=== PATIENT | female | born 1990 | race Caucasian/White ===

== ENCOUNTER 2016-11-12 17:10 | Inpatient (IN) | payer BC ==
[2016-11-12] MEDS ORDERED: KETOROLAC 30 MG/ML 1 ML VIAL IVP STA (17:29)
[2016-11-12] MEDS ORDERED: SODIUM CHLORIDE 0.9% 500 ML IV STA (17:29)
[2016-11-12] MEDS ORDERED: SODIUM CHLORIDE 0.9% 1,000 ML IV STA ×2 (17:29→19:43)
[2016-11-12] MEDS ORDERED: ACETAMINOPHEN IV (For NPO) 1,000 MG in EMPTY BAG 1 BAG IVPB STA (17:29)
[2016-11-12] MEDS ORDERED: LEVOFLOXACIN 750MG-D5W PMX 750 MG in DEXTROSE/WATER 1 150ML.BAG IVPB STA (17:30)
[2016-11-12] MEDS ORDERED: AMPICILLIN-SULBACTAM 3 GM in SODIUM CHLORIDE 0.9% 100 ML IVPB STA (17:30)
--- NOTE | 2016-11-12 17:54 | ED ---
General Adult HPI - General Chief complaint: Urogenital Stated complaint: UTI Time Seen by Provider: 11/12/16 17:28 Source: patient, RN notes reviewed, old records reviewed Mode of arrival: wheelchair Limitations: no limitations - History of Present Illness Initial comments: This is a 26-year-old female here for evaluation of flank pain and right-sided flank pain or fever. Patient has no history of kidney stones no significant medical history of similar issues. Decrease in urination. No abdominal pain, positive nausea vomiting starting last night. No diarrhea. No sick contacts or travel history. No modifying factors for symptoms of - Related Data Home Medications Medication Instructions Recorded Confirmed Aviane 1 tab PO DAILY 11/12/16 11/12/16 Cetirizine HCl [Zyrtec] 10 mg PO DAILY 11/12/16 11/12/16 Clindamycin Phos/Benzoyl Perox 1 applic TOPICAL BID 11/12/16 11/12/16 [Benzaclin Gel] Naproxen Sodium [Naproxen Sodium 550 mg PO DAILY PRN 11/12/16 11/12/16 DS] Previous Rx's Medication Instructions Recorded Levofloxacin [Levaquin] 750 mg PO DAILY #14 tab 11/12/16 Naproxen [Naprosyn] 500 mg PO Q12HR #30 tab 11/12/16 Ondansetron [Zofran] 4 mg PO Q8HR PRN #30 tab 11/12/16 Allergies Allergy/AdvReac Type Severity Reaction Status Date / Time cefaclor [From Ceclor] Allergy Rash/Hives Verified 11/12/16 17:38 Review of Systems ROS Statement: Those systems with pertinent positive or pertinent negative responses have been documented in the HPI. ROS Other: All systems not noted in ROS Statement are negative. Past Medical History Past Medical History: GERD/Reflux History of Any Multi-Drug Resistant Organisms: None Reported Past Surgical History: No Surgical Hx Reported Past Psychological History: No Psychological Hx Reported Smoking Status: Current every day smoker Past Alcohol Use History: Occasional Past Drug Use History: Marijuana General Exam Limitations: no limitations General appearance: alert, in no apparent distress Head exam: Present: atraumatic, normocephalic, normal inspection Eye exam: Present: normal appearance, PERRL, EOMI. Absent: scleral icterus, conjunctival injection, periorbital swelling ENT exam: Present: normal exam, mucous membranes moist Neck exam: Present: normal inspection. Absent: tenderness, meningismus, lymphadenopathy Respiratory exam: Present: normal lung sounds bilaterally. Absent: respiratory distress, wheezes, rales, rhonchi, stridor Cardiovascular Exam: Present: normal rhythm, tachycardia, normal heart sounds. Absent: systolic murmur, diastolic murmur, rubs, gallop, clicks GI/Abdominal exam: Present: soft, normal bowel sounds. Absent: distended, tenderness, guarding, rebound, rigid Extremities exam: Present: normal inspection, full ROM, normal capillary refill. Absent: tenderness, pedal edema, joint swelling, calf tenderness Back exam: Present: normal inspection Neurological exam: Present: alert, oriented X3, CN II-XII intact Psychiatric exam: Present: normal affect, normal mood Skin exam: Present: warm, dry, intact, normal color. Absent: rash Course Vital Signs 11/12/16 11/12/16 11/12/16 17:21 18:38 19:25 Temperature 101.5 F H 100.0 F H 99.3 F Pulse Rate 117 H 99 107 H Respiratory 20 16 16 Rate Blood Pressure 115/67 112/58 103/57 O2 Sat by Pulse 98 99 100 Oximetry - Reevaluation(s) Reevaluation #1: 11/12/16 19:41 At this time patient's fever has improved. Patient has ALLERGY to Keflex and given Levaquin here in the emergency room, will obtain cultures of urine Reevaluation #2: 11/12/16 19:41 At this time patient able to tolerate oral intake, fever has improved, is in no acute distress Medical Decision Making - Medical Decision Making 26 female to the ER for evaluation of right-sided flank pain, right-sided possible pyelonephritis, patient is not not diabetic has 2 kidneys has not cancer chemotherapeutic agents, patient stable for discharge home, given 2 L of fluids encouraged increased fluid intake and will be put on antibiotics for 2 weeks. Patient will return to ER if symptoms worsen - Lab Data Result diagrams: 11/12/16 18:00 11/12/16 18:00 Lab Results 11/12/16 11/12/16 11/12/16 Range/Units 18:00 18:00 18:18 WBC 16.1 H (3.8-10.6) k/uL RBC 4.35 (3.80-5.40) m/uL Hgb 13.3 (11.4-16.0) gm/dL Hct 39.7 (34.0-46.0) % MCV 91.4 (80.0-100.0) fL MCH 30.6 (25.0-35.0) pg MCHC 33.5 (31.0-37.0) g/dL RDW 13.2 (11.5-15.5) % Plt Count 241 (150-450) k/uL Neutrophils % 86 % Lymphocytes % 7 % Monocytes % 5 % Eosinophils % 1 % Basophils % 0 % Neutrophils # 13.8 H (1.3-7.7) k/uL Lymphocytes # 1.2 (1.0-4.8) k/uL Monocytes # 0.8 (0-1.0) k/uL Eosinophils # 0.1 (0-0.7) k/uL Basophils # 0.1 (0-0.2) k/uL Sodium 137 (137-145) mmol/L Potassium 4.1 (3.5-5.1) mmol/L Chloride 104 (98-107) mmol/L Carbon Dioxide 23 (22-30) mmol/L Anion Gap 10 mmol/L BUN 13 (7-17) mg/dL Creatinine 0.94 (0.52-1.04) mg/dL Est GFR (MDRD) Af Amer >60 (>60 ml/min/1.73 sqM) Est GFR (MDRD) Non-Af >60 (>60 ml/min/1.73 sqM) Glucose 92 (74-99) mg/dL Calcium 9.1 (8.4-10.2) mg/dL Total Bilirubin 1.0 (0.2-1.3) mg/dL AST 28 (14-36) U/L ALT 29 (9-52) U/L Alkaline Phosphatase 61 (38-126) U/L Total Protein 6.4 (6.3-8.2) g/dL Albumin 3.7 (3.5-5.0) g/dL Amylase 61 (30-110) U/L Lipase 62 (23-300) U/L Urine Color Urine Appearance (Clear) Urine pH (5.0-8.0) Ur Specific [place] (1.001-1.035) Urine Protein (Negative) Urine Glucose (UA) (Negative) Urine Ketones (Negative) Urine Blood (Negative) Urine Nitrite (Negative) Urine Bilirubin (Negative) Urine Urobilinogen (<2.0) mg/dL Ur Leukocyte Esterase (Negative) Urine RBC (0-5) /hpf Urine WBC (0-5) /hpf Ur Squamous Epith Cells (0-4) /hpf Urine Mucus (None) /hpf Urine HCG, Qual Not Detected (Not Detectd) 11/12/16 Range/Units 18:18 WBC (3.8-10.6) k/uL RBC (3.80-5.40) m/uL Hgb (11.4-16.0) gm/dL Hct (34.0-46.0) % MCV (80.0-100.0) fL MCH (25.0-35.0) pg MCHC (31.0-37.0) g/dL RDW (11.5-15.5) % Plt Count (150-450) k/uL Neutrophils % % Lymphocytes % % Monocytes % % Eosinophils % % Basophils % % Neutrophils # (1.3-7.7) k/uL Lymphocytes # (1.0-4.8) k/uL Monocytes # (0-1.0) k/uL Eosinophils # (0-0.7) k/uL Basophils # (0-0.2) k/uL Sodium (137-145) mmol/L Potassium (3.5-5.1) mmol/L Chloride (98-107) mmol/L Carbon Dioxide (22-30) mmol/L Anion Gap mmol/L BUN (7-17) mg/dL Creatinine (0.52-1.04) mg/dL Est GFR (MDRD) Af Amer (>60 ml/min/1.73 sqM) Est GFR (MDRD) Non-Af (>60 ml/min/1.73 sqM) Glucose (74-99) mg/dL Calcium (8.4-10.2) mg/dL Total Bilirubin (0.2-1.3) mg/dL AST (14-36) U/L ALT (9-52) U/L Alkaline Phosphatase (38-126) U/L Total Protein (6.3-8.2) g/dL Albumin (3.5-5.0) g/dL Amylase (30-110) U/L Lipase (23-300) U/L Urine Color Yellow Urine Appearance Turbid H (Clear) Urine pH 8.5 H (5.0-8.0) Ur Specific [place] 1.013 (1.001-1.035) Urine Protein 2+ H (Negative) Urine Glucose (UA) Negative (Negative) Urine Ketones Negative (Negative) Urine Blood Moderate H (Negative) Urine Nitrite Negative (Negative) Urine Bilirubin Negative (Negative) Urine Urobilinogen <2.0 (<2.0) mg/dL Ur Leukocyte Esterase Large H (Negative) Urine RBC 57 H (0-5) /hpf Urine WBC >182 H (0-5) /hpf Ur Squamous Epith Cells 5 H (0-4) /hpf Urine Mucus Rare H (None) /hpf Urine HCG, Qual (Not Detectd) - Radiology Data Radiology results: report reviewed (Computed tomography scan pelvis is negative for acute disease), image reviewed Disposition Clinical Impression: Urinary tract infection, Acute pyelonephritis Disposition: HOME SELF-CARE Condition: Good Instructions: Urinary Tract Infection in Women (ED) Prescriptions: Levofloxacin [Levaquin] 750 mg PO DAILY #14 tab Naproxen [Naprosyn] 500 mg PO Q12HR #30 tab Ondansetron [Zofran] 4 mg PO Q8HR PRN #30 tab PRN Reason: Pain Referrals: Michaela Freeman III, MD [Primary Care Provider] - 1-2 days
[2016-11-12 18:19] LABS: Basophils # (A) 0.1 k/uL (0-0.2); Basophils % (A) 0 %; CH 30.6; CHCM 33.6; Eosinophils # (A) 0.1 k/uL (0-0.7); Eosinophils % (A) 1 %; HCT 39.7 % (34.0-46.0); HDW 2.21; HGB 13.3 gm/dL (11.4-16.0); Luc # (Auto) 0.19; Luc % (Auto) 1; Lymphocytes # (A) 1.2 k/uL (1.0-4.8); Lymphocytes % (A) 7 %; MCH 30.6 pg (25.0-35.0); MCHC 33.5 g/dL (31.0-37.0); MCV 91.4 fL (80.0-100.0); Mean Platelet Volume 7.2; Monocytes # (A) 0.8 k/uL (0-1.0); Monocytes % (A) 5 %; Neutrophils # (A) 13.8 k/uL (1.3-7.7); Neutrophils % (A) 86 %; RBC 4.35 m/uL (3.80-5.40); RDW 13.2 % (11.5-15.5); WBC 16.1 k/uL (3.8-10.6)
[2016-11-12 18:24] LABS: ALT 29 U/L (9-52); AST 28 U/L (14-36); Alkaline Phosphatase 61 U/L (38-126); Amylase 61 U/L (30-110); Anion Gap 10 mmol/L; Blood Urea Nitrogen 13 mg/dL (7-17); Calcium 9.1 mg/dL (8.4-10.2); Carbon Dioxide 23 mmol/L (22-30); Chloride 104 mmol/L (98-107); Glucose 92 mg/dL (74-99); Non-African American GFR(MDRD) >60 (>60 ml/min/1.73 sqM); Potassium 4.1 mmol/L (3.5-5.1); Sodium 137 mmol/L (137-145); Total Protein 6.4 g/dL (6.3-8.2)
[2016-11-12 18:30] LABS: Appearance,Urine Turbid (Clear); Bilirubin,Urine Negative (Negative); Glucose,Urine (UA) Negative (Negative); Ketones,Urine Negative (Negative); Leukocyte Esterase,Urine Large (Negative); Mucus,Urine Rare /hpf; Nitrite,Urine Negative (Negative); PH, Urine 8.5 (5.0-8.0); Particle Count 9944; Protein,Urine 2+ (Negative); RBC,Urine 57 /hpf (0-5); Specific Gravity,Urine 1.013 (1.001-1.035); Squamous Epithelial Cell,Urine 5 /hpf (0-4); UA Billing (MACRO vs. MICRO) MICRO; Urobilinogen,Urine <2.0 mg/dL (<2.0); WBC,Urine >182 /hpf (0-5)
[2016-11-12] MEDS ORDERED: MORPHINE SULFATE 4 MG/ML SYRINGE IVP STA ×2 (18:35→19:59)
[2016-11-12] MEDS ORDERED: LORazepam 2 MG/ML SYRINGE IV STA (18:35)
[2016-11-12] MEDS ORDERED: ONDANSETRON 4 MG/2 ML VIAL IVP STA (18:48)
[2016-11-12] MEDS: SODIUM CHLORIDE 0.9% 1,000 ML IV STA (19:15)
--- NOTE | 2016-11-12 19:22 | CT ---
EXAMINATION TYPE: CT abdomen pelvis wo con DATE OF EXAM: 11/12/2016 7:12 PM COMPARISON: NONE HISTORY: Right sided flank pain CT DLP: 765 mGycm Automated exposure control for dose reduction was used. TECHNIQUE: Helical acquisition of images was performed from the lung bases through the pelvis. FINDINGS: Lung bases are clear of consolidation. There is no pleural effusion. There is minimal pleural thicken ing at the posterior lung bases. Heart is normal. Liver spleen pancreas gallbladder appear normal. Bile ducts are not dilated. There is no adrenal mass. The right kidney shows mild perinephric stranding. The right ureter is mild ly ectatic. I do not see a definite ureteral calculus. Bladder distends smoothly. There is no sign of a pelvic mass. There is a small amount of free fluid in the pelvis. Appendix is not definitely seen. There is no sign of appendicitis. IMPRESSION: THERE IS PERINEPHRIC AND PERIURETERAL EDEMA ON THE RIGHT SIDE WITHOUT SIGNIFICANT ENLARGEMENT OF THE RIGHT URETER. THIS COULD RELATE TO A NONOPAQUE STONE OR RECENTLY PASSED STONE. NO SIGN OF APPENDICITI S. SINCE THE RIGHT URETER IS NOT SIGNIFICANTLY ENLARGED THE POSSIBILITY OF ACUTE PYELONEPHRITIS SHOUL D ALSO BE CONSIDERED.
[2016-11-12] MEDS ORDERED: MORPHINE SULFATE 4 MG/ML SYRINGE IVP PRN (19:46)
--- NOTE | 2016-11-12 19:48 | ED ---
Medical Decision Making - Medical Decision Making 22 for female with pyelonephritis, on reevaluation, patient is actively vomiting , states she is having increased pain and return to right flank. Again CT is negative for kidney stone the patient will be admitted for IV antibiotics IV fluid and rehydration. - Lab Data Result diagrams: 11/12/16 18:00 11/12/16 18:00 Lab Results 11/12/16 11/12/16 11/12/16 Range/Units 18:00 18:00 18:18 WBC 16.1 H (3.8-10.6) k/uL RBC 4.35 (3.80-5.40) m/uL Hgb 13.3 (11.4-16.0) gm/dL Hct 39.7 (34.0-46.0) % MCV 91.4 (80.0-100.0) fL MCH 30.6 (25.0-35.0) pg MCHC 33.5 (31.0-37.0) g/dL RDW 13.2 (11.5-15.5) % Plt Count 241 (150-450) k/uL Neutrophils % 86 % Lymphocytes % 7 % Monocytes % 5 % Eosinophils % 1 % Basophils % 0 % Neutrophils # 13.8 H (1.3-7.7) k/uL Lymphocytes # 1.2 (1.0-4.8) k/uL Monocytes # 0.8 (0-1.0) k/uL Eosinophils # 0.1 (0-0.7) k/uL Basophils # 0.1 (0-0.2) k/uL Sodium 137 (137-145) mmol/L Potassium 4.1 (3.5-5.1) mmol/L Chloride 104 (98-107) mmol/L Carbon Dioxide 23 (22-30) mmol/L Anion Gap 10 mmol/L BUN 13 (7-17) mg/dL Creatinine 0.94 (0.52-1.04) mg/dL Est GFR (MDRD) Af Amer >60 (>60 ml/min/1.73 sqM) Est GFR (MDRD) Non-Af >60 (>60 ml/min/1.73 sqM) Glucose 92 (74-99) mg/dL Calcium 9.1 (8.4-10.2) mg/dL Total Bilirubin 1.0 (0.2-1.3) mg/dL AST 28 (14-36) U/L ALT 29 (9-52) U/L Alkaline Phosphatase 61 (38-126) U/L Total Protein 6.4 (6.3-8.2) g/dL Albumin 3.7 (3.5-5.0) g/dL Amylase 61 (30-110) U/L Lipase 62 (23-300) U/L Urine Color Urine Appearance (Clear) Urine pH (5.0-8.0) Ur Specific [place] (1.001-1.035) Urine Protein (Negative) Urine Glucose (UA) (Negative) Urine Ketones (Negative) Urine Blood (Negative) Urine Nitrite (Negative) Urine Bilirubin (Negative) Urine Urobilinogen (<2.0) mg/dL Ur Leukocyte Esterase (Negative) Urine RBC (0-5) /hpf Urine WBC (0-5) /hpf Ur Squamous Epith Cells (0-4) /hpf Urine Mucus (None) /hpf Urine HCG, Qual Not Detected (Not Detectd) 11/12/16 Range/Units 18:18 WBC (3.8-10.6) k/uL RBC (3.80-5.40) m/uL Hgb (11.4-16.0) gm/dL Hct (34.0-46.0) % MCV (80.0-100.0) fL MCH (25.0-35.0) pg MCHC (31.0-37.0) g/dL RDW (11.5-15.5) % Plt Count (150-450) k/uL Neutrophils % % Lymphocytes % % Monocytes % % Eosinophils % % Basophils % % Neutrophils # (1.3-7.7) k/uL Lymphocytes # (1.0-4.8) k/uL Monocytes # (0-1.0) k/uL Eosinophils # (0-0.7) k/uL Basophils # (0-0.2) k/uL Sodium (137-145) mmol/L Potassium (3.5-5.1) mmol/L Chloride (98-107) mmol/L Carbon Dioxide (22-30) mmol/L Anion Gap mmol/L BUN (7-17) mg/dL Creatinine (0.52-1.04) mg/dL Est GFR (MDRD) Af Amer (>60 ml/min/1.73 sqM) Est GFR (MDRD) Non-Af (>60 ml/min/1.73 sqM) Glucose (74-99) mg/dL Calcium (8.4-10.2) mg/dL Total Bilirubin (0.2-1.3) mg/dL AST (14-36) U/L ALT (9-52) U/L Alkaline Phosphatase (38-126) U/L Total Protein (6.3-8.2) g/dL Albumin (3.5-5.0) g/dL Amylase (30-110) U/L Lipase (23-300) U/L Urine Color Yellow Urine Appearance Turbid H (Clear) Urine pH 8.5 H (5.0-8.0) Ur Specific [place] 1.013 (1.001-1.035) Urine Protein 2+ H (Negative) Urine Glucose (UA) Negative (Negative) Urine Ketones Negative (Negative) Urine Blood Moderate H (Negative) Urine Nitrite Negative (Negative) Urine Bilirubin Negative (Negative) Urine Urobilinogen <2.0 (<2.0) mg/dL Ur Leukocyte Esterase Large H (Negative) Urine RBC 57 H (0-5) /hpf Urine WBC >182 H (0-5) /hpf Ur Squamous Epith Cells 5 H (0-4) /hpf Urine Mucus Rare H (None) /hpf Urine HCG, Qual (Not Detectd) Disposition Clinical Impression: Urinary tract infection, Acute pyelonephritis Disposition: ADMITTED IP TO THIS HOSP Condition: Good Instructions: Urinary Tract Infection in Women (ED) Prescriptions: Levofloxacin [Levaquin] 750 mg PO DAILY #14 tab Naproxen [Naprosyn] 500 mg PO Q12HR #30 tab Ondansetron [Zofran] 4 mg PO Q8HR PRN #30 tab PRN Reason: Pain Referrals: Michaela Freeman III, MD [Primary Care Provider] - 1-2 days
[2016-11-12] MEDS ORDERED: HYDROmorphone 1 MG/ML 1 ML SYRINGE IVP PRN (21:24)
[2016-11-12] MEDS: METOCLOPRAMIDE 5 MG/ML 2 ML VIAL IVP PRN (22:08)
[2016-11-12] MEDS: TEMAZEPAM 15 MG CAP PO PRN (23:04)
[2016-11-12 23:41] VITALS: BMI 26.9
[2016-11-13] MEDS: ALPRAZolam 0.25 MG TAB PO PRN ×2 (00:27→21:58)
[2016-11-13 02:12] LABS: Basophils % (A) 0 %; CH 30.4; CHCM 33.1; Eosinophils % (A) 0 %; HCT 34.7 % (34.0-46.0); HDW 2.24; HGB 11.5 gm/dL (11.4-16.0); Luc # (Auto) 0.11; Luc % (Auto) 1; Lymphocytes # (A) 0.8 k/uL (1.0-4.8); Lymphocytes % (A) 5 %; MCH 30.7 pg (25.0-35.0); MCHC 33.3 g/dL (31.0-37.0); MCV 92.2 fL (80.0-100.0); Mean Platelet Volume 6.6; Monocytes # (A) 0.4 k/uL (0-1.0); Monocytes % (A) 2 %; Neutrophils # (A) 13.7 k/uL (1.3-7.7); Neutrophils % (A) 91 %; RBC 3.76 m/uL (3.80-5.40); RDW 13.3 % (11.5-15.5); WBC 15.1 k/uL (3.8-10.6); WBC (Perox) 16.22
[2016-11-13 02:15] LABS: Anion Gap 7 mmol/L; Blood Urea Nitrogen 10 mg/dL (7-17); Calcium 7.7 mg/dL (8.4-10.2); Carbon Dioxide 20 mmol/L (22-30); Chloride 109 mmol/L (98-107); Glucose 122 mg/dL (74-99); Non-African American GFR(MDRD) >60 (>60 ml/min/1.73 sqM); Potassium 3.2 mmol/L (3.5-5.1); Sodium 136 mmol/L (137-145)
[2016-11-13] MEDS: NICOTINE 14MG/24HR PATCH TRANSDERM SCH ×2 (04:11→09:25)
[2016-11-13] MEDS: SODIUM CHLORIDE 0.9% 1,000 ML IV STA (04:14)
[2016-11-13] MEDS: LORATADINE 10 MG TAB PO SCH (07:29)
[2016-11-13] MEDS: HYDROmorphone 1 MG/ML 1 ML SYRINGE IVP PRN ×3 (07:30→18:27)
[2016-11-13] MEDS: METOCLOPRAMIDE 5 MG/ML 2 ML VIAL IVP PRN ×3 (07:36→20:35)
--- NOTE | 2016-11-13 07:45 | XR ---
EXAMINATION TYPE: XR chest 1V portable DATE OF EXAM: 11/13/2016 7:23 AM CLINICAL HISTORY: CHF per order. Pyelonephritis and fever per technologist. TECHNIQUE: 2 AP portable frontal upright views of the chest are obtained. Imaging is repeated after r emoval of bra. COMPARISON: Chest x-ray from August 10, 2009 FINDINGS: Diminished inspiration is noted on repeat view. There is no suspicious focal airspace opac ity, pleural effusion, or pneumothorax seen bilaterally. The cardiac silhouette size is upper limits of normal. Osseous structures are intact. Overlying metallic nipple ornaments are incidentally noted. IMPRESSION: No suspicious focal infiltrate present.
--- NOTE | 2016-11-13 08:41 | HP ---
DATE OF ADMISSION: The chief complaint is abdominal pain. HISTORY OF PRESENT ILLNESS: This 26-year-old woman with the past history of GERD, history of smoking and occasional THC being followed by Dr. Freeman in the outpatient setting. Came to [facility] emergency room with complaints of basically the flank pain and right-sided flank pain and fever. The patient had no history of kidney stones. Patient complaining of some decrease in urination. The patient had previous UTIs. The patient was found to have significant UTI and possibly increased WBC, possibly pyelonephritis was considered. Patient admitted for further evaluation and treatment. A CAT scan of the abdomen and pelvis was done at the time of admission, showed perinephric and periureteral edema on the right side without any significant enlargement of the right ureter which could be related to nonopaque stone or recently passed stone according to the report. No of appendicitis. The right ureter is not significantly enlarged. The possibility of pyelonephritis is per the CAT scan report. There is no history of any headache, loss of consciousness or any hematochezia, melena. PAST MEDICAL HISTORY: History of GERD, history of nicotine dependence, history of THC. Medications are: 1. Naprosyn 550 mg daily p.r.n. 2. Clindamycin 1 application b.i.d. 3. Zyrtec 10 mg daily. 4. Aviane 1 tablet p.o. daily. 5. Zofran 4 mg q.8 p.r.n. 6. Naprosyn 500 mg p.o. b.i.d. 7. Levaquin 750 p.o. daily. Allergies are CEFACLOR. FAMILY HISTORY: No history of heart disease or strokes in the family. 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 History of smoking. REVIEW OF SYSTEMS: ENT: No diminished hearing or diminished vision. CARDIOVASCULAR: No angina or palpitation. RESPIRATORY: No cough. GI: As mentioned earlier. : As mentioned earlier. NERVOUS SYSTEM: No numbness or weakness. ALLERGY/IMMUNOLOGY: No asthma. MUSCULOSKELETAL: As mentioned earlier. HEMATOLOGY: No history of anemia. ENDOCRINE: No history of diabetes or hypothyroidism. CONSTITUTIONAL: As mentioned earlier. DERMATOLOGY: Negative. RHEUMATOLOGY: Negative. PSYCHIATRY: As mentioned earlier. PHYSICAL EXAM: Patient is alert and oriented x3. Pulse is 117, blood pressure 115/67, respirations 20, temperature 101.5, pulse ox 98% on room air. HEENT: Conjunctivae normal. Oral mucosa moist. NECK: No jugular venous distention. No carotid bruit. LYMPHATICS: No lymph node enlargement the neck, axillae or groin. SKIN: No ulcer, rash, bleeding. ABDOMEN: Soft, mild diffuse tenderness especially on the right side and also right renal angle also. There is no guarding. No mass palpable. Bowel sounds present, no ascites. NERVOUS SYSTEM: Higher functions as mentioned, moves all 4 limbs. No focal motor or sensory deficits. SKIN: No ulcer, rash, bleeding. JOINTS: No active deformity. LABS: WBC 16.1, hemoglobin is 13.3. UA noted. ASSESSMENT: 1. Acute right pyelonephritis with possibly sepsis, present on admission. 2. Severe abdominal pain. 3. Hiccups. 4. Gastroesophageal reflux disease. 5. History of nicotine dependence. 6. History of THC. RECOMMENDATION: In this 26-year-old woman who presented with multiple complex medical issues, will monitor the patient closely. Continue with the IV antibiotics, will obtain cultures, symptomatic treatment. We will provide IV fluids. Otherwise, continue to monitor, consult Dr. Barger. There is no clearcut evidence of nephrolithiasis at this time. I would also recommend to resume the home medications as well. Guarded prognosis. Further recommendations to follow. MTDD
[2016-11-13] MEDS ORDERED: PANTOPRAZOLE 40 MG/10 ML VIAL IVP SCH ×2 (09:00)
[2016-11-13] MEDS: HYDROcodone/APAP 5-325MG 1 EACH TAB PO PRN ×2 (10:05→16:24)
[2016-11-13] MEDS: PANTOPRAZOLE 40 MG TABLET PO SCH (18:31)
[2016-11-13] MEDS ORDERED: LEVOFLOXACIN 750MG-D5W PMX 750 MG in DEXTROSE/WATER 1 150ML.BAG IVPB SCH (19:00)
--- NOTE | 2016-11-13 21:33 | P.CONS ---
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 Was associated with fever and chill. Also associated with nausea and emesis. The discomforts have increased greatly over the 48 hours before she came to hospital. The patient did not notice crystal hematuria urine was dark and cloudy and malodorous. She was having some dysuria. She however has not noticed any significant migratory pain from the left flank into the pelvic area. She has no history of nephrolithiasis. Has not felt that she has passed any foreign bodies in the last few days for her urinary system. He has noted she's had nausea and emesis without hematemesis. She's had mildly loose stool but no crystal melena or hematochezia. He feels poor this evening with ongoing nausea and emesis. Review of Systems HEENT:Denies headache or acute visual change. Denies sinus or mouth discomforts. Denies neck stiffness or pain. Denies significant oral cavity pain. Denies difficulty on swallowing. Lungs: Denies significant shortness of breath, cough, sputum production, or hemoptysis. Cardiovascular: Denies significant shortness of breath, chest pain, chest wall pain, orthopnea, dyspnea on exertion, syncope Gastrointestinal: As per the HPI positive nausea and emesis Musculoskeletal: denies significant myalgias or arthralgias. No new joint swelling. Denies new back pain. Skin: Denies new rash or lesions. No new ulcers or wounds are related.. Neuro: Denies headache or visual change. Denies any new onset weakness or difficulty with ambulation. Denies falls or seizures. Psychiatric:Denies anxiety or depression. Endocrine: Denies significant fatigue, denies significant weight loss or weight gain. 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 Single but has a live-in boyfriend. No recent travel. No animal exposures. No experience. Limited THC use no significant alcohol or other recreational drug use. Smoking Status: Current some day smoker Past Alcohol Use History: Occasional Past Drug Use History: Marijuana - Past Family History Mother Family Medical History: No Reported History Additional Family Medical History / Comment(s): car accident with back problems Medications and Allergies Home Medications and Allergies Comment(s): Current Medications Hydrocodone Bitart/Acetaminophen ([place] 5-325) 1 each PO Q6HR PRN PRN Reason: Moderate Pain Last Admin: 11/13/16 16:24 Dose: 1 each Alprazolam (Xanax) 0.25 mg PO TID PRN PRN Reason: Anxiety Last Admin: 11/13/16 00:27 Dose: 0.25 mg Docusate Sodium (Colace) 100 mg PO DAILY [facility] Hydromorphone HCl (Dilaudid) 1 mg IVP Q6HR PRN PRN Reason: severe spasm only 10/10 Last Admin: 11/13/16 18:27 Dose: 1 mg Hydromorphone HCl (Dilaudid) 0.25 mg IVP Q4HR PRN PRN Reason: Pain Scale 6 To 8 Last Admin: 11/13/16 14:22 Dose: 0.25 mg Levofloxacin 750 mg/ IV (Solution) 150 mls @ 100 mls/hr IVPB Q24H [facility] Last Admin: 11/13/16 18:31 Dose: 100 mls/hr Ketorolac Tromethamine (Toradol) 30 mg IVP Q6HR [facility] Stop: 11/17/16 22:01 Loratadine (Claritin) 10 mg PO DAILY [facility] Last Admin: 11/13/16 07:29 Dose: 10 mg Metoclopramide HCl (Reglan) 5 mg IVP Q6HR PRN PRN Reason: hiccoughs Last Admin: 11/13/16 20:35 Dose: 5 mg Nicotine (Habitrol 14mg/24hr Patch) 1 patch TRANSDERM DAILY [facility] Last Admin: 11/13/16 09:25 Dose: Not Given Ondansetron HCl (Zofran) 4 mg IVP Q6HR PRN PRN Reason: Nausea And Vomiting Pantoprazole Sodium (Protonix) 40 mg PO AC-BID [facility] Last Admin: 11/13/16 18:31 Dose: 40 mg Temazepam (Restoril) 15 mg PO HS PRN PRN Reason: Insomnia Last Admin: 11/12/16 23:04 Dose: 15 mg Home Medications Medication Instructions Recorded Confirmed Type Aviane 1 tab PO DAILY 11/12/16 11/12/16 History Cetirizine HCl [Zyrtec] 10 mg PO DAILY 11/12/16 11/12/16 History Clindamycin Phos/Benzoyl Perox 1 applic TOPICAL BID 11/12/16 11/12/16 History [Benzaclin Gel] Naproxen Sodium [Naproxen Sodium 550 mg PO DAILY PRN 11/12/16 11/12/16 History DS] Allergies Allergy/AdvReac Type Severity Reaction Status Date / Time mani Allergy Severe Swelling Verified 11/13/16 01:50 cefaclor [From [facility]] Allergy Rash/Hives Verified 11/12/16 23:41 cats Allergy Cough Uncoded 11/13/16 01:50 Physical Exam Vitals: Vital Signs Temp Pulse Resp BP Pulse Ox 11/13/16 21:16 98.3 F 99 17 105/65 100 11/13/16 15:00 97.0 F L 99 20 96/59 100 11/13/16 07:00 98.4 F 20 92/53 97 11/13/16 01:35 99.8 F H 112 H 16 92/52 97 11/13/16 00:10 99.0 F 116 H 20 98/60 99 11/12/16 22:00 100.9 F H 112 H 24 114/68 99 Intake and Output 11/13/16 11/13/16 11/13/16 06:59 14:59 22:59 Output Total 500 900 700 Balance -500 -900 -700 Output: Urine 500 900 700 Other: Voiding Method Toilet Toilet # Voids 1 1 26-year-old woman feeling very miserable, ongoing abdominal pain to the right lower quadrant and right flank assist with active nausea and emesis at this time. HEENT: Anicteric conjunctiva are pink and moist nasal mucosa grossly intact without significant lesions, there is no thrush. Neck: The neck is supple without significant lymphadenopathy or thyromegaly. Lungs: Good bilateral air entry without significant crackles or wheezing. There is no significant bronchial sounds. There is no egophony or dullness. Heart: Regular rate and rhythm with an audible S1-S2, no S3 no S4. There is no significant murmur click or rub, PMI was nondisplaced. Abdomen: Positive bowel sounds are noted. The abdomen is soft. There is tenderness into the right flank that does radiate into the right lower quadrant. There is however no guarding or rebound. There is minimal tenderness over the bladder. There is no bladder distention. There is no bruising over the flank. No hepatosplenomegaly is noted. Extremities: The upper extremities have excellent pulses they are symmetric, no significant petechiae or telangiectasia. No splinter hemorrhages were noted. The lower extremities are free from significant edema. The peripheral pulses were 2+ and symmetric. Neuro: Awake alert oriented to person place and time. There are no acute new gross focal sensory motor deficits. Results CBC & Chem 7: 11/13/16 01:54 11/13/16 01:54 Labs: Abnormal Lab Results - Last 24 Hours (Table) 11/13/16 11/13/16 Range/Units 01:54 01:54 WBC 15.1 H (3.8-10.6) k/uL RBC 3.76 L (3.80-5.40) m/uL Neutrophils # 13.7 H (1.3-7.7) k/uL Lymphocytes # 0.8 L (1.0-4.8) k/uL Sodium 136 L (137-145) mmol/L Potassium 3.2 L (3.5-5.1) mmol/L Chloride 109 H (98-107) mmol/L Carbon Dioxide 20 L (22-30) mmol/L Glucose 122 H (74-99) mg/dL Calcium 7.7 L (8.4-10.2) mg/dL Laboratory Results WBC 15.1 k/uL (3.8-10.6) H 11/13/16 01:54 RBC 3.76 m/uL (3.80-5.40) L 11/13/16 01:54 Hgb 11.5 gm/dL (11.4-16.0) 11/13/16 01:54 Hct 34.7 % (34.0-46.0) 11/13/16 01:54 MCV 92.2 fL (80.0-100.0) 11/13/16 01:54 MCH 30.7 pg (25.0-35.0) 11/13/16 01:54 MCHC 33.3 g/dL (31.0-37.0) 11/13/16 01:54 RDW 13.3 % (11.5-15.5) 11/13/16 01:54 Plt Count 200 k/uL (150-450) 11/13/16 01:54 Neutrophils % 91 % 11/13/16 01:54 Lymphocytes % 5 % 11/13/16 01:54 Monocytes % 2 % 11/13/16 01:54 Eosinophils % 0 % 11/13/16 01:54 Basophils % 0 % 11/13/16 01:54 Neutrophils # 13.7 k/uL (1.3-7.7) H 11/13/16 01:54 Lymphocytes # 0.8 k/uL (1.0-4.8) L 11/13/16 01:54 Monocytes # 0.4 k/uL (0-1.0) 11/13/16 01:54 Eosinophils # 0.0 k/uL (0-0.7) 11/13/16 01:54 Basophils # 0.0 k/uL (0-0.2) 11/13/16 01:54 Sodium 136 mmol/L (137-145) L 11/13/16 01:54 Potassium 3.2 mmol/L (3.5-5.1) L 11/13/16 01:54 Chloride 109 mmol/L (98-107) H 11/13/16 01:54 Carbon Dioxide 20 mmol/L (22-30) L 11/13/16 01:54 Anion Gap 7 mmol/L 11/13/16 01:54 BUN 10 mg/dL (7-17) 11/13/16 01:54 Creatinine 0.80 mg/dL (0.52-1.04) 11/13/16 01:54 Est GFR (MDRD) Af Amer >60 (>60 ml/min/1.73 sqM) 11/13/16 01:54 Est GFR (MDRD) Non-Af >60 (>60 ml/min/1.73 sqM) 11/13/16 01:54 Glucose 122 mg/dL (74-99) H 11/13/16 01:54 Plasma Lactic Acid Konstantin 1.6 mmol/L (0.7-2.0) 11/13/16 09:23 Calcium 7.7 mg/dL (8.4-10.2) L 11/13/16 01:54 Total Bilirubin 1.0 mg/dL (0.2-1.3) 11/12/16 18:00 AST 28 U/L (14-36) 11/12/16 18:00 ALT 29 U/L (9-52) 11/12/16 18:00 Alkaline Phosphatase 61 U/L (38-126) 11/12/16 18:00 Total Protein 6.4 g/dL (6.3-8.2) 11/12/16 18:00 Albumin 3.7 g/dL (3.5-5.0) 11/12/16 18:00 Amylase 61 U/L (30-110) 11/12/16 18:00 Lipase 62 U/L (23-300) 11/12/16 18:00 Urine Color Yellow 11/12/16 18:18 Urine Appearance Turbid (Clear) H 11/12/16 18:18 Urine pH 8.5 (5.0-8.0) H 11/12/16 18:18 Ur Specific [place] 1.013 (1.001-1.035) 11/12/16 18:18 Urine Protein 2+ (Negative) H 11/12/16 18:18 Urine Glucose (UA) Negative (Negative) 11/12/16 18:18 Urine Ketones Negative (Negative) 11/12/16 18:18 Urine Blood Moderate (Negative) H 11/12/16 18:18 Urine Nitrite Negative (Negative) 11/12/16 18:18 Urine Bilirubin Negative (Negative) 11/12/16 18:18 Urine Urobilinogen <2.0 mg/dL (<2.0) 11/12/16 18:18 Ur Leukocyte Esterase Large (Negative) H 11/12/16 18:18 Urine RBC 57 /hpf (0-5) H 11/12/16 18:18 Urine WBC >182 /hpf (0-5) H 11/12/16 18:18 Ur Squamous Epith Cells 5 /hpf (0-4) H 11/12/16 18:18 Urine Mucus Rare /hpf (None) H 11/12/16 18:18 Urine HCG, Qual Not Detected (Not Detectd) 11/12/16 18:18 Microbiology 11/12/16 18:18 Urine,Voided Urine Culture - Preliminary Assessment and Plan (1) Acute pyelonephritis Narrative/Plan: 26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 She had a fever of 101.5 at admission. She continues to have nausea and emesis which is active at this time. Ongoing significant flank pain. Especially at the right pelvic brim. It is noted the computed tomography scan shows evidence of stranding around the right kidney. Consistent with pyelonephritis since no evidence of any obstruction was seen and there was no significant dilatation of the right ureter. A non-radiopaque stone was also in the consideration. Patient does feel slightly better and that her fever is improved. She's not having chills or rigors. Social having active nausea and emesis. Some Zofran is added. Pain control is an issue and Toradol is added. Follow up labs and cultures in progress. Status: Acute (2) Nausea & vomiting Status: Acute (3) Fever Status: Acute (4) Acute right flank pain Status: Acute
[2016-11-13] MEDS: TEMAZEPAM 15 MG CAP PO PRN (21:58)
[2016-11-14] MEDS: SODIUM CHLORIDE 0.9% 1,000 ML IV STA ×2 (01:52→11:41)
[2016-11-14] MEDS: HYDROmorphone 1 MG/ML 1 ML SYRINGE IVP PRN ×2 (05:17→19:53)
[2016-11-14] MEDS: ONDANSETRON 4 MG/2 ML VIAL IVP PRN ×3 (05:21→23:12)
[2016-11-14 07:14] LABS: Basophils % (A) 0 %; CH 30.6; CHCM 32.9; Eosinophils # (A) 0.2 k/uL (0-0.7); Eosinophils % (A) 1 %; HCT 31.8 % (34.0-46.0); HDW 2.45; HGB 10.4 gm/dL (11.4-16.0); Luc # (Auto) 0.47; Luc % (Auto) 4; Lymphocytes # (A) 1.4 k/uL (1.0-4.8); Lymphocytes % (A) 12 %; MCH 30.7 pg (25.0-35.0); MCHC 32.8 g/dL (31.0-37.0); MCV 93.7 fL (80.0-100.0); Mean Platelet Volume 7.2; Monocytes # (A) 0.9 k/uL (0-1.0); Monocytes % (A) 8 %; Neutrophils # (A) 8.4 k/uL (1.3-7.7); Neutrophils % (A) 74 %; RDW 13.3 % (11.5-15.5); WBC 11.4 k/uL (3.8-10.6); WBC (Perox) 12.53
[2016-11-14 07:27] LABS: Anion Gap 7 mmol/L; Blood Urea Nitrogen 5 mg/dL (7-17); Calcium 8.1 mg/dL (8.4-10.2); Carbon Dioxide 22 mmol/L (22-30); Chloride 112 mmol/L (98-107); Glucose 86 mg/dL (74-99); Non-African American GFR(MDRD) >60 (>60 ml/min/1.73 sqM); Potassium 3.9 mmol/L (3.5-5.1); Sodium 141 mmol/L (137-145)
--- NOTE | 2016-11-14 08:56 | PN ---
DATE OF SERVICE: 11/13/2016 This 26 -year-old woman who was admitted with acute right pyelonephritis with possible sepsis is being closely monitored. The patient complaining of abdominal discomfort and as well as pain also. Chest x-ray showed no specific focal infiltrate. CT scan has been . Infectious disease evaluation in progress. No chest pain. No palpitations. No fever. On exam, alert and oriented times three. Pulse 112. Blood pressure 92/52. Respiration 16, temperature 99.8. Pulse ox 97% on room air. HEENT: Conjunctivae normal. NECK: No jugular venous distention. CARDIOVASCULAR: S1, S2. CARDIOVASCULAR: Breath sounds diminished in the bases. No rhonchi, no crackles. ABDOMEN: Soft. Mild diffuse discomfort especially on the right side, right angle tenderness also present. Nervous system: No focal deficits. LABS: WBC 15.1 and sodium 133, potassium 3.2. UA noted. Cultures are pending at this time. ASSESSMENT: 1. Acute right pyelonephritis with possible early sepsis, present on admission. 2. Severe abdominal and renal pain. 3. Hiccups. 4. Gastroesophageal reflux disease. 5. History of nicotine dependence. 6. History of THC. 7. Hypernatremia. 8. Mild hypokalemia. 9. Mild hypocalcemia. 10. Increased random blood sugar. RECOMMENDATIONS AND DISCUSSION: Recommend to continue the current medications. Continue symptomatic treatment. Otherwise, we will monitor the patient closely. Otherwise, repeat labs in the morning. Infectious disease evaluation by Dr. Barger. Guarded prognosis. Further recommendations to follow. [facility]
[2016-11-14] MEDS ORDERED: KETOROLAC 30 MG/ML 1 ML VIAL IVP STA (09:21)
[2016-11-14] MEDS: LORATADINE 10 MG TAB PO SCH (09:56)
[2016-11-14] MEDS: PANTOPRAZOLE 40 MG TABLET PO SCH ×2 (09:56→18:01)
[2016-11-14] MEDS: DOCUSATE 100 MG CAP PO SCH (09:56)
[2016-11-14] MEDS: HYDROcodone/APAP 5-325MG 1 EACH TAB PO PRN ×2 (14:10→17:58)
[2016-11-14] MEDS: NICOTINE 14MG/24HR PATCH TRANSDERM SCH (14:54)
[2016-11-14] MEDS: KETOROLAC 30 MG/ML 1 ML VIAL IVP SCH ×2 (16:02→23:21)
[2016-11-14] MEDS: LEVOFLOXACIN 750 MG TAB PO SCH (18:01)
--- NOTE | 2016-11-14 18:22 | PN ---
DATE OF SERVICE: 11/14/2016 This 26-year-old woman who was admitted with right pyelonephritis and possible sepsis, is being closely monitored. No chest pain or palpitations. No fever. On exam, alert and oriented x3. Pulse 88, blood pressure 85/47, respirations 22, temperature 98.4, pulse ox 97% on room air. HEENT: Conjunctivae normal. NECK: No jugular venous distension. CARDIOVASCULAR: S1 and S2 muffled. RESPIRATORY: Breath sounds diminished in the bases. No rhonchi. No crackles. ABDOMEN: Soft. Mild diffuse tenderness present, right more than left and renal angle tenderness. No guarding. No rigidity. No mass palpable. Bowel sounds present. LEGS: No edema. No swelling. LABS: WBC 11.4, hemoglobin is 10.4. Urine culture is gram-negative bacilli. ASSESSMENT: 1. Acute right pyelonephritis with possibility of early sepsis, present on admission. 2. Gram-negative bacilli from the urine culture. 3. Severe abdominal pain and renal angle pain. 4. Hiccups. 5. Gastroesophageal reflux disease. 6. History of nicotine dependence. 7. History of THC. 8. Hypernatremia. 9. Mild hyperkalemia. 10. Mild hypocalcemia. 11. Increased random blood sugar. RECOMMENDATIONS AND DISCUSSION: Recommend to continue with current medications. Continue with monitoring and symptomatic treatment. Otherwise, at this time I recommend continuing with antibiotics, closely follow with Dr. Barger. Guarded prognosis. Further recommendations to follow.
[2016-11-14] MEDS: METOCLOPRAMIDE 5 MG/ML 2 ML VIAL IVP PRN (19:45)
[2016-11-14] MEDS: SODIUM CHLORIDE 0.9% 1,000 ML IV SCH (21:28)
[2016-11-14] MEDS ORDERED: KETOROLAC 30 MG/ML 1 ML VIAL IVP SCH (22:00)
--- NOTE | 2016-11-14 22:03 | P.PN ---
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 Was associated with fever and chill. Also associated with nausea and emesis. The discomforts have increased greatly over the 48 hours before she came to hospital. The patient did not notice crystal hematuria urine was dark and cloudy and malodorous. She was having some dysuria. She however has not noticed any significant migratory pain from the left flank into the pelvic area. She has no history of nephrolithiasis. Has not felt that she has passed any foreign bodies in the last few days for her urinary system. Feeling somewhat better today. Still having some pain at times. The nausea and emesis of generally resolved. She's had one bout of nausea today but no further emesis occurred. Overall feeling considerably better. Her fevers resolved. Is receiving relatively good pain control with current parameters. However with her family present she had some worsening discomfort and received Dilaudid and h is had an excellent response for pain control. Obvious narcotic effect. Patient does relate the pain has moved more from the flank to bit more anterior lower into the pelvis. Objective - Vital Signs Vital signs: Vital Signs Temp 97.9 F 11/14/16 20:30 Pulse 82 11/14/16 20:30 Resp 20 11/14/16 20:30 BP 110/72 11/14/16 20:30 Pulse Ox 97 11/14/16 20:30 Intake & Output 11/14/16 11/14/16 11/15/16 06:59 18:59 06:59 Intake Total 400 Output Total 1100 1600 Balance -700 -1600 Intake: Oral 400 Output: Urine 1100 1600 Other: Voiding Method Toilet Toilet Toilet - Exam 26-year-old woman feeling very miserable, ongoing abdominal pain to the right lower quadrant and right flank assist with active nausea and emesis at this time. HEENT: Anicteric conjunctiva are pink and moist nasal mucosa grossly intact without significant lesions, there is no thrush. Neck: The neck is supple without significant lymphadenopathy or thyromegaly. Lungs: Good bilateral air entry without significant crackles or wheezing. There is no significant bronchial sounds. There is no egophony or dullness. Heart: Regular rate and rhythm with an audible S1-S2, no S3 no S4. There is no significant murmur click or rub, PMI was nondisplaced. Abdomen: Positive bowel sounds are noted. The abdomen is soft. There is tenderness into the right flank that does radiate into the right lower quadrant. There is however no guarding or rebound. There is minimal tenderness over the bladder. There is no bladder distention. There is no bruising over the flank. No hepatosplenomegaly is noted. Extremities: The upper extremities have excellent pulses they are symmetric, no significant petechiae or telangiectasia. No splinter hemorrhages were noted. The lower extremities are free from significant edema. The peripheral pulses were 2+ and symmetric. Neuro: Awake alert oriented to person place and time. There are no acute new gross focal sensory motor deficits. - Labs CBC & Chem 7: 11/14/16 06:59 11/14/16 06:59 Labs: Abnormal Lab Results - Last 24 Hours (Table) 11/14/16 11/14/16 Range/Units 06:59 06:59 WBC 11.4 H (3.8-10.6) k/uL RBC 3.40 L (3.80-5.40) m/uL Hgb 10.4 L (11.4-16.0) gm/dL Hct 31.8 L (34.0-46.0) % Neutrophils # 8.4 H (1.3-7.7) k/uL Chloride 112 H (98-107) mmol/L BUN 5 L (7-17) mg/dL Calcium 8.1 L (8.4-10.2) mg/dL Microbiology - Last 24 Hours (Table) 11/12/16 22:05 Blood Culture - Preliminary Blood No Growth after 24 hours Laboratory Results WBC 11.4 k/uL (3.8-10.6) H 11/14/16 06:59 RBC 3.40 m/uL (3.80-5.40) L 11/14/16 06:59 Hgb 10.4 gm/dL (11.4-16.0) L 11/14/16 06:59 Hct 31.8 % (34.0-46.0) L 11/14/16 06:59 MCV 93.7 fL (80.0-100.0) 11/14/16 06:59 MCH 30.7 pg (25.0-35.0) 11/14/16 06:59 MCHC 32.8 g/dL (31.0-37.0) 11/14/16 06:59 RDW 13.3 % (11.5-15.5) 11/14/16 06:59 Plt Count 182 k/uL (150-450) 11/14/16 06:59 Neutrophils % 74 % 11/14/16 06:59 Lymphocytes % 12 % 11/14/16 06:59 Monocytes % 8 % 11/14/16 06:59 Eosinophils % 1 % 11/14/16 06:59 Basophils % 0 % 11/14/16 06:59 Neutrophils # 8.4 k/uL (1.3-7.7) H 11/14/16 06:59 Lymphocytes # 1.4 k/uL (1.0-4.8) 11/14/16 06:59 Monocytes # 0.9 k/uL (0-1.0) 11/14/16 06:59 Eosinophils # 0.2 k/uL (0-0.7) 11/14/16 06:59 Basophils # 0.0 k/uL (0-0.2) 11/14/16 06:59 Sodium 141 mmol/L (137-145) 11/14/16 06:59 Potassium 3.9 mmol/L (3.5-5.1) 11/14/16 06:59 Chloride 112 mmol/L (98-107) H 11/14/16 06:59 Carbon Dioxide 22 mmol/L (22-30) 11/14/16 06:59 Anion Gap 7 mmol/L 11/14/16 06:59 BUN 5 mg/dL (7-17) L 11/14/16 06:59 Creatinine 0.90 mg/dL (0.52-1.04) 11/14/16 06:59 Est GFR (MDRD) Af Amer >60 (>60 ml/min/1.73 sqM) 11/14/16 06:59 Est GFR (MDRD) Non-Af >60 (>60 ml/min/1.73 sqM) 11/14/16 06:59 Glucose 86 mg/dL (74-99) 11/14/16 06:59 Plasma Lactic Acid Konstantin 1.6 mmol/L (0.7-2.0) 11/13/16 09:23 Calcium 8.1 mg/dL (8.4-10.2) L 11/14/16 06:59 Total Bilirubin 1.0 mg/dL (0.2-1.3) 11/12/16 18:00 AST 28 U/L (14-36) 11/12/16 18:00 ALT 29 U/L (9-52) 11/12/16 18:00 Alkaline Phosphatase 61 U/L (38-126) 11/12/16 18:00 Total Protein 6.4 g/dL (6.3-8.2) 11/12/16 18:00 Albumin 3.7 g/dL (3.5-5.0) 11/12/16 18:00 Amylase 61 U/L (30-110) 11/12/16 18:00 Lipase 62 U/L (23-300) 11/12/16 18:00 Urine Color Yellow 11/12/16 18:18 Urine Appearance Turbid (Clear) H 11/12/16 18:18 Urine pH 8.5 (5.0-8.0) H 11/12/16 18:18 Ur Specific [place] 1.013 (1.001-1.035) 11/12/16 18:18 Urine Protein 2+ (Negative) H 11/12/16 18:18 Urine Glucose (UA) Negative (Negative) 11/12/16 18:18 Urine Ketones Negative (Negative) 11/12/16 18:18 Urine Blood Moderate (Negative) H 11/12/16 18:18 Urine Nitrite Negative (Negative) 11/12/16 18:18 Urine Bilirubin Negative (Negative) 11/12/16 18:18 Urine Urobilinogen <2.0 mg/dL (<2.0) 11/12/16 18:18 Ur Leukocyte Esterase Large (Negative) H 11/12/16 18:18 Urine RBC 57 /hpf (0-5) H 11/12/16 18:18 Urine WBC >182 /hpf (0-5) H 11/12/16 18:18 Ur Squamous Epith Cells 5 /hpf (0-4) H 11/12/16 18:18 Urine Mucus Rare /hpf (None) H 11/12/16 18:18 Urine HCG, Qual Not Detected (Not Detectd) 11/12/16 18:18 C.trachomatis RNA Not detected (Not detected) 11/12/16 18:18 Chlamydia/GC DNA Source See Below 11/12/16 18:18 N.gonorrhoeae RNA Not detected (Not detected) 11/12/16 18:18 Microbiology 11/12/16 18:18 Urine,Voided Urine Culture - Final Escherichia coli 11/12/16 22:05 Blood Blood Culture - Preliminary No Growth after 24 hours Assessment and Plan (1) Acute pyelonephritis Narrative/Plan: 26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 She had a fever of 101.5 at admission. She was having nausea and emesis is now much improved. Ongoing significant flank pain. Has moved a bit to the right lower quadrant area. It is noted the computed tomography scan shows evidence of stranding around the right kidney. Consistent with pyelonephritis since no evidence of any obstruction was seen and there was no significant dilatation of the right ureter. A non-radiopaque stone was also in the consideration. With this in the symptoms an ultrasound of the areas been requested to see if the stone can be found. Fever is improved. Chills and rigors have improved. Was having significant nausea and emesis yesterday Some Zofran was added with great response. Pain control is an issue and Toradol is added. Follow up labs and cultures in progress. Gram-negative bacilli in the urine we' ll continue current antibiotic therapy and alter as indicated. Status: Acute (2) Nausea & vomiting Status: Acute (3) Fever Status: Acute (4) Acute right flank pain Status: Acute
[2016-11-14] MEDS: TEMAZEPAM 15 MG CAP PO PRN (23:29)
[2016-11-14] MEDS: ALPRAZolam 0.25 MG TAB PO PRN (23:29)
[2016-11-15] MEDS: KETOROLAC 30 MG/ML 1 ML VIAL IVP SCH ×3 (06:22→18:01)
[2016-11-15 07:03] LABS: Basophils % (A) 0 %; CH 30.6; CHCM 32.8; Eosinophils # (A) 0.2 k/uL (0-0.7); Eosinophils % (A) 2 %; HCT 31.5 % (34.0-46.0); HDW 2.51; HGB 10.5 gm/dL (11.4-16.0); Luc # (Auto) 0.28; Luc % (Auto) 3; Lymphocytes # (A) 1.6 k/uL (1.0-4.8); Lymphocytes % (A) 17 %; MCH 31.2 pg (25.0-35.0); MCHC 33.3 g/dL (31.0-37.0); MCV 93.6 fL (80.0-100.0); Mean Platelet Volume 7.3; Monocytes # (A) 0.7 k/uL (0-1.0); Monocytes % (A) 7 %; Neutrophils # (A) 6.5 k/uL (1.3-7.7); Neutrophils % (A) 70 %; RBC 3.37 m/uL (3.80-5.40); RDW 13.3 % (11.5-15.5); WBC 9.3 k/uL (3.8-10.6); WBC (Perox) 9.64
[2016-11-15 07:15] LABS: Anion Gap 6 mmol/L; Blood Urea Nitrogen 6 mg/dL (7-17); Calcium 8.1 mg/dL (8.4-10.2); Carbon Dioxide 25 mmol/L (22-30); Chloride 110 mmol/L (98-107); Glucose 86 mg/dL (74-99); Non-African American GFR(MDRD) >60 (>60 ml/min/1.73 sqM); Sodium 141 mmol/L (137-145)
[2016-11-15] MEDS: PANTOPRAZOLE 40 MG TABLET PO SCH ×2 (07:36→18:01)
[2016-11-15] MEDS: SODIUM CHLORIDE 0.9% 1,000 ML IV SCH ×3 (07:36→17:12)
[2016-11-15] MEDS: DOCUSATE 100 MG CAP PO SCH (08:54)
[2016-11-15] MEDS: LORATADINE 10 MG TAB PO SCH (08:54)
[2016-11-15] MEDS: ONDANSETRON 4 MG/2 ML VIAL IVP PRN ×2 (09:38→21:16)
[2016-11-15] MEDS: NICOTINE 14MG/24HR PATCH TRANSDERM SCH (09:49)
[2016-11-15] MEDS: HYDROmorphone 1 MG/ML 1 ML SYRINGE IVP PRN (10:01)
--- NOTE | 2016-11-15 10:59 | US ---
EXAMINATION TYPE: US kidneys/renal and bladder DATE OF EXAM: 11/15/2016 10:35 AM COMPARISON: CT abdomen and pelvis from 3 days ago. CLINICAL HISTORY: pyelonephritis stone. Fever,dysu jenn, right flank pain EXAM MEASUREMENTS: Right Kidney: 11.5 x 4.7 x 5.2 cm Left Kidney: 10.2 x 5.5 x 5.2 cm Post Void Residual Volume: 19.3 mL Right Kidney: small amount of free fluid adjacent to lower pole Left Kidney: no evidence of hydronephrosis or mass Bladder: appears wnl Bilateral Jets seen: yes Normal Post Void Residual: yes There is no evidence for hydronephrosis at this point in time. No nephrolithiasis is seen. No ngozi s are identified. The urinary bladder is anechoic. Bilateral ureteral jets are seen. After voiding small amount of res idual urine is present. IMPRESSION: There is redemonstration of small amount of free fluid along lower pole of right kidney, nonspecific finding, likely related to right-sided infection. No hydronephrosis is evident bilaterally.
[2016-11-15] MEDS: HYDROcodone/APAP 5-325MG 1 EACH TAB PO PRN ×2 (14:36→21:12)
--- NOTE | 2016-11-15 17:47 | PN ---
DATE OF SERVICE: 11/15/2016 This 26-year-old woman who was admitted with acute pyelonephritis is being closely monitored. E. coli growing from the culture. The patient on broad spectrum IV antibiotics. Dr. Barger is following the patient closely. E. coli is polysensitive. The patient also underwent abdominal bladder ultrasound, which showed a small amount of free fluid along the lower part of the right kidney nonspecific findings likely related to right sided infection. No hydronephrosis noted. No chest pain or palpitation. No fever. On exam alert and oriented times three. Pulse is 80, blood pressure 108/60, respiration 20, temperature 98 degrees, pulse ox 98% on room air. HEENT: Conjunctivae normal. NECK: No jugular venous distention. CARDIOVASCULAR: S1, S2 muffled. RESPIRATORY: Breath sounds diminished at the bases. No rhonchi. No crackles. ABDOMEN: Soft, mild diffuse tenderness on the right side and right renal tenderness was noted. CENTRAL NERVOUS SYSTEM: No focal deficits. LABS: WBC normal at 9.3, hemoglobin is 10.5, sodium 140, potassium 4. ASSESSMENT: 1. Acute right pyelonephritis with possible early sepsis present on admission. 2. Escherichia coli grown from the urine culture. 3. Severe abdominal pain, right renal angle pain. 4. Hiccups. 5. Gastroesophageal reflux disease. 6. History of nicotine dependence. 7. History of THC. 8. Hypernatremia. 9. Mild hyperkalemia. 10. Mild hypocalcemia. 11. Increased random blood sugar. 12. FULL CODE. RECOMMENDATIONS AND DISCUSSION: In this 26 -year-old woman who presented with multiple complex medical issues, we will monitor the patient closely. Continue the current medications. Continue symptomatic treatment. Otherwise, at this time, I recommend to continue antibiotics. Closely follow with Dr. Barger. Guarded prognosis. Further recommendations to follow.
--- NOTE | 2016-11-15 17:58 | P.PN ---
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 Was associated with fever and chill. Also associated with nausea and emesis. The discomforts have increased greatly over the 48 hours before she came to hospital. The patient did not notice crystal hematuria urine was dark and cloudy and malodorous. She was having some dysuria. She however has not noticed any significant migratory pain from the left flank into the pelvic area. She has no history of nephrolithiasis. Has not felt that she has passed any foreign bodies in the last few days for her urinary system. Feeling somewhat better today. Still having pain at times. The nausea and emesis have resolved. Overall feeling considerably better. Her fevers resolved. Is receiving relatively good pain control with current parameters. Patient does relate the pain has moved more from the flank to bit more anterior lower into the pelvis. Objective - Vital Signs Vital signs: Vital Signs Temp 97.2 F L 11/15/16 16:10 Pulse 82 11/15/16 16:10 Resp 20 11/15/16 16:10 BP 108/62 11/15/16 16:10 Pulse Ox 100 11/15/16 16:10 Intake & Output 11/14/16 11/15/16 11/15/16 18:59 06:59 18:59 Intake Total 200 Output Total 1600 1200 800 Balance -1600 -1000 -800 Intake: Oral 200 Output: Urine 1600 1200 800 Other: Voiding Method Toilet Toilet Toilet # Voids 300 1 - Exam 26-year-old woman feeling very miserable, ongoing abdominal pain to the right lower quadrant and right flank assist with active nausea and emesis at this time. HEENT: Anicteric conjunctiva are pink and moist nasal mucosa grossly intact without significant lesions, there is no thrush. Neck: The neck is supple without significant lymphadenopathy or thyromegaly. Lungs: Good bilateral air entry without significant crackles or wheezing. There is no significant bronchial sounds. There is no egophony or dullness. Heart: Regular rate and rhythm with an audible S1-S2, no S3 no S4. There is no significant murmur click or rub, PMI was nondisplaced. Abdomen: Positive bowel sounds are noted. The abdomen is soft. There is tenderness into the right flank that does radiate into the right lower quadrant. There is however no guarding or rebound. There is minimal tenderness over the bladder. There is no bladder distention. There is no bruising over the flank. No hepatosplenomegaly is noted. Extremities: The upper extremities have excellent pulses they are symmetric, no significant petechiae or telangiectasia. No splinter hemorrhages were noted. The lower extremities are free from significant edema. The peripheral pulses were 2+ and symmetric. Neuro: Awake alert oriented to person place and time. There are no acute new gross focal sensory motor deficits. - Labs CBC & Chem 7: 11/15/16 06:46 11/15/16 06:46 Labs: Abnormal Lab Results - Last 24 Hours (Table) 11/15/16 11/15/16 Range/Units 06:46 06:46 RBC 3.37 L (3.80-5.40) m/uL Hgb 10.5 L (11.4-16.0) gm/dL Hct 31.5 L (34.0-46.0) % Chloride 110 H (98-107) mmol/L BUN 6 L (7-17) mg/dL Calcium 8.1 L (8.4-10.2) mg/dL Microbiology - Last 24 Hours (Table) 11/12/16 22:05 Blood Culture - Preliminary Blood No Growth after 48 hours Laboratory Results WBC 9.3 k/uL (3.8-10.6) 11/15/16 06:46 RBC 3.37 m/uL (3.80-5.40) L 11/15/16 06:46 Hgb 10.5 gm/dL (11.4-16.0) L 11/15/16 06:46 Hct 31.5 % (34.0-46.0) L 11/15/16 06:46 MCV 93.6 fL (80.0-100.0) 11/15/16 06:46 MCH 31.2 pg (25.0-35.0) 11/15/16 06:46 MCHC 33.3 g/dL (31.0-37.0) 11/15/16 06:46 RDW 13.3 % (11.5-15.5) 11/15/16 06:46 Plt Count 172 k/uL (150-450) 11/15/16 06:46 Neutrophils % 70 % 11/15/16 06:46 Lymphocytes % 17 % 11/15/16 06:46 Monocytes % 7 % 11/15/16 06:46 Eosinophils % 2 % 11/15/16 06:46 Basophils % 0 % 11/15/16 06:46 Neutrophils # 6.5 k/uL (1.3-7.7) 11/15/16 06:46 Lymphocytes # 1.6 k/uL (1.0-4.8) 11/15/16 06:46 Monocytes # 0.7 k/uL (0-1.0) 11/15/16 06:46 Eosinophils # 0.2 k/uL (0-0.7) 11/15/16 06:46 Basophils # 0.0 k/uL (0-0.2) 11/15/16 06:46 Sodium 141 mmol/L (137-145) 11/15/16 06:46 Potassium 4.0 mmol/L (3.5-5.1) 11/15/16 06:46 Chloride 110 mmol/L (98-107) H 11/15/16 06:46 Carbon Dioxide 25 mmol/L (22-30) 11/15/16 06:46 Anion Gap 6 mmol/L 11/15/16 06:46 BUN 6 mg/dL (7-17) L 11/15/16 06:46 Creatinine 0.92 mg/dL (0.52-1.04) 11/15/16 06:46 Est GFR (MDRD) Af Amer >60 (>60 ml/min/1.73 sqM) 11/15/16 06:46 Est GFR (MDRD) Non-Af >60 (>60 ml/min/1.73 sqM) 11/15/16 06:46 Glucose 86 mg/dL (74-99) 11/15/16 06:46 Plasma Lactic Acid Konstantin 1.6 mmol/L (0.7-2.0) 11/13/16 09:23 Calcium 8.1 mg/dL (8.4-10.2) L 11/15/16 06:46 Total Bilirubin 1.0 mg/dL (0.2-1.3) 11/12/16 18:00 AST 28 U/L (14-36) 11/12/16 18:00 ALT 29 U/L (9-52) 11/12/16 18:00 Alkaline Phosphatase 61 U/L (38-126) 11/12/16 18:00 Total Protein 6.4 g/dL (6.3-8.2) 11/12/16 18:00 Albumin 3.7 g/dL (3.5-5.0) 11/12/16 18:00 Amylase 61 U/L (30-110) 11/12/16 18:00 Lipase 62 U/L (23-300) 11/12/16 18:00 Urine Color Yellow 11/12/16 18:18 Urine Appearance Turbid (Clear) H 11/12/16 18:18 Urine pH 8.5 (5.0-8.0) H 11/12/16 18:18 Ur Specific [place] 1.013 (1.001-1.035) 11/12/16 18:18 Urine Protein 2+ (Negative) H 11/12/16 18:18 Urine Glucose (UA) Negative (Negative) 11/12/16 18:18 Urine Ketones Negative (Negative) 11/12/16 18:18 Urine Blood Moderate (Negative) H 11/12/16 18:18 Urine Nitrite Negative (Negative) 11/12/16 18:18 Urine Bilirubin Negative (Negative) 11/12/16 18:18 Urine Urobilinogen <2.0 mg/dL (<2.0) 11/12/16 18:18 Ur Leukocyte Esterase Large (Negative) H 11/12/16 18:18 Urine RBC 57 /hpf (0-5) H 11/12/16 18:18 Urine WBC >182 /hpf (0-5) H 11/12/16 18:18 Ur Squamous Epith Cells 5 /hpf (0-4) H 11/12/16 18:18 Urine Mucus Rare /hpf (None) H 11/12/16 18:18 Urine HCG, Qual Not Detected (Not Detectd) 11/12/16 18:18 C.trachomatis RNA Not detected (Not detected) 11/12/16 18:18 Chlamydia/GC DNA Source See Below 11/12/16 18:18 N.gonorrhoeae RNA Not detected (Not detected) 11/12/16 18:18 Microbiology 11/12/16 22:05 Blood Blood Culture - Preliminary No Growth after 48 hours 11/12/16 18:18 Urine,Voided Urine Culture - Final Escherichia coli Assessment and Plan (1) Acute pyelonephritis Narrative/Plan: 26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 She had a fever of 101.5 at admission. She was having nausea and emesis is now much improved. Ongoing significant flank pain. Has moved a bit to the right lower quadrant area. It is noted the computed tomography scan shows evidence of stranding around the right kidney. Consistent with pyelonephritis since no evidence of any obstruction was seen and there was no significant dilatation of the right ureter. A non-radiopaque stone was also in the consideration. With this in the symptoms an ultrasound of the areas been requested to see if the stone can be found. Fever is improved. Chills and rigors have improved. Was having significant nausea and emesis yesterday Some Zofran was added with great response. Pain control is an issue and Toradol is added. Follow up labs and cultures in progress. Gram-negative bacilli has been isolated from the urine but the blood cultures are negative. Cultures now finalized as E. coli that is parks susceptible. With her marked clinical improvement would continue her course of levofloxacin for discharge. Plan 14 days at discharge. Is a complex pyelonephritis. We discussed that often take 7 days of therapy to really start to feel better with a pyelonephritis. She is able to eat and drink without emesis and have oral pain medication she could discharge home tomorrow. Follow-up in the office in 2 weeks. Status: Acute (2) Nausea & vomiting Status: Acute (3) Fever Status: Acute (4) Acute right flank pain Status: Acute
[2016-11-15] MEDS: LEVOFLOXACIN 750 MG TAB PO SCH (18:01)
[2016-11-16] MEDS: KETOROLAC 30 MG/ML 1 ML VIAL IVP SCH ×3 (00:11→12:25)
[2016-11-16] MEDS: TEMAZEPAM 15 MG CAP PO PRN (00:15)
[2016-11-16] MEDS: ALPRAZolam 0.25 MG TAB PO PRN (00:15)
[2016-11-16] MEDS: SODIUM CHLORIDE 0.9% 1,000 ML IV SCH (03:18)
[2016-11-16 08:23] VITALS: PULSE 78; RESP 16
[2016-11-16 09:16] LABS: Anion Gap 8 mmol/L; Blood Urea Nitrogen 8 mg/dL (7-17); Calcium 8.3 mg/dL (8.4-10.2); Carbon Dioxide 24 mmol/L (22-30); Chloride 110 mmol/L (98-107); Glucose 88 mg/dL (74-99); Non-African American GFR(MDRD) >60 (>60 ml/min/1.73 sqM); Potassium 4.1 mmol/L (3.5-5.1); Sodium 142 mmol/L (137-145)
[2016-11-16 09:31] LABS: Aty Lym Flag Slight; CH 30.1; CHCM 32.7; HCT 32.1 % (34.0-46.0); HDW 2.49; HGB 10.7 gm/dL (11.4-16.0); MCH 30.8 pg (25.0-35.0); MCHC 33.4 g/dL (31.0-37.0); MCV 92.2 fL (80.0-100.0); Mean Platelet Volume 6.7; RBC 3.48 m/uL (3.80-5.40); RDW 13.2 % (11.5-15.5); WBC 7.9 k/uL (3.8-10.6); WBC (Perox) 7.72
[2016-11-16 10:31] LABS: Add Differential Manual Differential
[2016-11-16 10:33] LABS: Nucleated Red Blood Cells 0 /100 WBC (0-0); Total Cells Counted 100
[2016-11-16 10:34] LABS: Manual Review Performed; RBC Morphology Normal
[2016-11-16] MEDS: DOCUSATE 100 MG CAP PO SCH (10:37)
[2016-11-16] MEDS: PANTOPRAZOLE 40 MG TABLET PO SCH (10:37)
[2016-11-16] MEDS: LORATADINE 10 MG TAB PO SCH (10:37)
[2016-11-16] MEDS: HYDROcodone/APAP 5-325MG 1 EACH TAB PO PRN (10:40)
[2016-11-16] MEDS: NICOTINE 14MG/24HR PATCH TRANSDERM SCH (10:40)
[2016-11-16 13:02] VITALS: BP 111/70; TEMP 97.6
--- NOTE | 2016-11-17 13:33 | DS ---
DATE OF ADMISSION: 11/12/2016 DATE OF DISCHARGE: 11/16/2016 DISCHARGE DIAGNOSIS(ES): 1. Acute right pyelonephritis with possible early sepsis, present on admission. Secondary to Escherichia coli. 2. Escherichia coli grown from the urine culture. 3. Severe abdominal pain, right renal angle pain secondary from pyelonephritis. 4. Hiccups, improved. 5. Gastroesophageal reflux disease. 6. History nicotine dependence. 7. History of THC. 8. Hypernatremia. 9. Mild hyperkalemia. 10. Mild hypocalcemia. 11. Increased random blood sugar. 12. FULL CODE. DISCHARGE DISPOSITION: The patient will be discharged in stable condition with guarded prognosis. HISTORY OF PRESENT ILLNESS: This 26 -year-old woman with past medical history of features of acute pyelonephritis, severe abdominal pain treated with antibiotics and symptomatic treatment, E. coli is grown from the culture. Abdominal bladder ultrasound was done, which showed a small amount of free fluid around the kidneys. Otherwise, no other abnormalities possibly secondary to pyelonephritis. Clinically the patient improved much better. White count normalized at 7.9, hemoglobin 10.91. On exam, vitals are stable. CARDIOVASCULAR SYSTEM: S1, S2 muffled. Abdomen soft, mildly diffuse tenderness with no guarding. No rigidity. No mass palpable. CENTRAL NERVOUS SYSTEM: No focal deficits. The patient is being discharged in stable condition with the following advice and medications: 1. Diet is cardiac. 2. Activity limited follow-up. 3. Follow up with Dr. Freeman in 2 to 3 days. 4. The medications will be Zyrtec 10 mg p.o. daily. 5. avaine 1 tablet p.o. daily. 6. Clindamycin local application. 7. Levaquin 750 p.o. daily for one week. 8. Naprosyn 500 mg p.o. b.i.d. p.r.n. 9. Zofran 4 mg p.o. q.8 p.r.n. 10. Desdemona 5 mg q.6 p.r.n. Once again, the patient will be discharged in a stable condition with guarded prognosis. Follow with Dr. Barger as recommended. [facility]
== END 2016-11-16 16:30 | disposition home or self-care (01) | DRG 872 ==
LOC: EC 17:10 → 6PED 19:42
PROVIDERS: ADMIT Hospitalist; ATTEND Hospitalist
DX: A41.51 Sepsis due to Escherichia coli [E. coli] (principal); E87.0 Hyperosmolality and hypernatremia; N10 Acute pyelonephritis; E87.6 Hypokalemia; E83.51 Hypocalcemia; F17.200 Nicotine dependence, unspecified, uncomplicated; K21.9 Gastro-esophageal reflux disease without esophagitis; Z79.899 Other long term (current) drug therapy; Z88.1 Allergy status to other antibiotic agents; Z87.440 Personal history of urinary (tract) infections
CPT/HCPCS: 36415; 71010; 74176; 76770; 80048; 80053; 81001; 81025; 82150; 83605; 83690; 85025; 87040; 87077; 87086; 87186; 87491; 87591; 96365; 96367; 96375; 96376; 99285

== ENCOUNTER → 2016-12-11 | Outpatient (CLI) | payer BC ==
--- NOTE | 2016-12-11 15:40 | US ---
EXAMINATION TYPE: US kidneys/renal and bladder DATE OF EXAM: 12/11/2016 3:30 PM COMPARISON: Ultrasound CLINICAL HISTORY: N10 PYELONEPHRITIS. Abdomen pain, history of pyelonephritis EXAM MEASUREMENTS: Right Kidney: 9.7 x 4.5 x 4.9 cm Left Kidney: 9.3 x 5.0 x 4.1 cm Post Void Residual Volume: 10.3 mL Right Kidney: no hydronephrosis or masses seen Left Kidney: no hydronephrosis or masses seen, superior pole limited by overlying bowel gas Bladder: wnl Bilateral Jets seen: yes Normal Post Void Residual: yes There is no evidence for hydronephrosis at this point in time. No nephrolithiasis is seen. No ngozi s are identified. The urinary bladder is anechoic. Bilateral ureteral jets are seen. IMPRESSION: No distinct abnormality appreciated.
== END | disposition home or self-care (01) ==
LOC: RADUSMAIN 15:00
PROVIDERS: ATTEND Internal Medicine Infectious Disease
DX: N13.30 Unspecified hydronephrosis (principal); N10 Acute pyelonephritis; N15.1 Renal and perinephric abscess
CPT/HCPCS: 76770

== ENCOUNTER 2017-07-21 13:01 | Emergency (ER) | payer OTHER, BC ==
[2017-07-21] MEDS ORDERED: HYDROmorphone 2 MG/ML 1 ML SYRINGE IM STA (13:50)
[2017-07-21] MEDS ORDERED: ONDANSETRON ODT 4 MG TAB PO STA ×2 (13:51→15:13)
[2017-07-21] MEDS ORDERED: HYDROmorphone 2 MG/ML 1 ML SYRINGE IVP STA (13:51)
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
[2017-07-21 15:23] VITALS: BP 129/92; PULSE 92; RESP 18; TEMP 98.8
== END 2017-07-21 15:23 | disposition home or self-care (01) ==
LOC: EC 13:01
DX: R51 Headache (principal); M54.2 Cervicalgia; R11.0 Nausea; F17.200 Nicotine dependence, unspecified, uncomplicated; Z79.3 Long term (current) use of hormonal contraceptives; Z79.899 Other long term (current) drug therapy; Z88.1 Allergy status to other antibiotic agents; Z91.018 Allergy to other foods; Z91.048 Other nonmedicinal substance allergy status; Z84.89 Family history of other specified conditions; V43.52XA Car driver injured in collision with other type car in traffic accident, initial encounter; Y92.410 Unspecified street and highway as the place of occurrence of the external cause
CPT/HCPCS: 72125; 70450; 99284; 96374; J1170

== ENCOUNTER → 2020-01-28 | Outpatient (CLI) | payer OTHER ==
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
== END | disposition home or self-care (01) ==
LOC: RADCTMAIN 13:31
PROVIDERS: ATTEND Family Medicine
DX: R25.1 Tremor, unspecified (principal); Z91.81 History of falling
CPT/HCPCS: 70450

== ENCOUNTER 2020-01-30 23:31 | Emergency (ER) | payer OTHER ==
[2020-01-30] MEDS ORDERED: HYDROmorphone 1 MG/ML 1 ML SYRINGE IVP STA (23:48)
[2020-01-30] MEDS ORDERED: SODIUM CHLORIDE 0.9% 1,000 ML IV STA (23:48)
[2020-01-30] MEDS ORDERED: ONDANSETRON 4 MG/2 ML VIAL IVP STA (23:48)
[2020-01-31 00:25] LABS: Basophils # (A) 0.1 k/uL (0-0.2); Basophils % (A) 1 %; Eosinophils # (A) 0.4 k/uL (0-0.7); Eosinophils % (A) 5 %; HCT 39.3 % (34.0-46.0); HGB 12.9 gm/dL (11.4-16.0); Lymphocytes # (A) 2.5 k/uL (1.0-4.8); Lymphocytes % (A) 30 %; MCH 30.1 pg (25.0-35.0); MCHC 32.7 g/dL (31.0-37.0); MCV 92.1 fL (80.0-100.0); Monocytes # (A) 0.5 k/uL (0-1.0); Monocytes % (A) 7 %; Neutrophils # (A) 4.6 k/uL (1.3-7.7); Neutrophils % (A) 56 %; Platelet Count 293 k/uL (150-450); RBC 4.27 m/uL (3.80-5.40); RDW 13.5 % (11.5-15.5); WBC 8.3 k/uL (3.8-10.6)
[2020-01-31 00:33] LABS: ALT 13 U/L (4-34); AST 22 U/L (14-36); African American GFR (CKD) >90 (>60 ml/min/1.73 sqM); Albumin 3.8 g/dL (3.5-5.0); Alkaline Phosphatase 69 U/L (38-126); Amylase 45 U/L (30-110); Anion Gap 9 mmol/L; Blood Urea Nitrogen 11 mg/dL (7-17); Carbon Dioxide 21 mmol/L (22-30); Chloride 108 mmol/L (98-107); Glucose 80 mg/dL (74-99); Non-African American GFR(CKD) 89 (>60 ml/min/1.73 sqM); Sodium 138 mmol/L (137-145); Total Bilirubin <0.1 mg/dL (0.2-1.3); Total Protein 6.6 g/dL (6.3-8.2)
--- NOTE | 2020-01-31 00:37 | ED ---
Abdominal Pain HPI - General Chief Complaint: Abdominal Pain Stated Complaint: Abd Pain Time Seen by Provider: 01/30/20 23:39 Source: patient Mode of arrival: ambulatory Limitations: no limitations - History of Present Illness Initial Comments: 29-year-old female patient presents to the emergency department today for evaluation of midepigastric abdominal pain. Patient that the pain is sharp in nature and shooting. Patient states started about an hour ago. She is denies any nausea or vomiting. Denies constipation or diarrhea. Denies any hematuria, dysuria, urinary frequency, urinary urgency. Denies abnormal vaginal bleeding or discharge. Denies fever or chills. Denies history of similar symptoms. Denies history of abdominal surgery. Patient denies any recent rash, cough, shortness of breath, chest pain, back pain, numbness, tingling, dizziness, weakness, hematuria, dysuria, urinary urgency, urinary frequency, headache, visual changes, or any other complaints. - Related Data Home Medications Medication Instructions Recorded Confirmed Aviane 1 tab PO DAILY 11/12/16 11/12/16 Cetirizine HCl [Zyrtec] 10 mg PO DAILY 11/12/16 11/12/16 Clindamycin Phos/Benzoyl Perox 1 applic TOPICAL BID 11/12/16 11/12/16 [Benzaclin Gel] Naproxen Sodium [Naproxen Sodium 550 mg PO DAILY PRN 11/12/16 11/12/16 DS] Previous Rx's Medication Instructions Recorded Levofloxacin [Levaquin] 750 mg PO DAILY #14 tab 11/12/16 Naproxen [Naprosyn] 500 mg PO Q12HR #30 tab 11/12/16 Ondansetron [Zofran] 4 mg PO Q8HR PRN #30 tab 11/12/16 Ondansetron Odt [Zofran Odt] 4 mg PO Q8HR PRN #6 tab 07/21/17 Allergies Allergy/AdvReac Type Severity Reaction Status Date / Time mani Allergy Severe Swelling Verified 01/30/20 23:36 cefaclor [From Ceclor] Allergy Rash/Hives Verified 01/30/20 23:36 kiwi Allergy Swelling Verified 01/30/20 23:36 cats Allergy Cough Uncoded 01/30/20 23:36 Review of Systems ROS Statement: Those systems with pertinent positive or pertinent negative responses have been documented in the HPI. ROS Other: All systems not noted in ROS Statement are negative. Past Medical History Past Medical History: GERD/Reflux Additional Past Medical History / Comment(s): bursitis both hips, History of Any Multi-Drug Resistant Organisms: None Reported Past Surgical History: No Surgical Hx Reported Past Anesthesia/Blood Transfusion Reactions: No Reported Reaction Additional Past Anesthesia/Blood Transfusion Reaction / Comment(s): mom gets bad headaches after anesthesia Past Psychological History: Anxiety, Depression Smoking Status: Current every day smoker Past Alcohol Use History: Occasional Past Drug Use History: Marijuana - Past Family History Mother Family Medical History: No Reported History Additional Family Medical History / Comment(s): car accident with back problems General Exam Limitations: no limitations General appearance: alert, in no apparent distress, other (This is a well- developed, well-nourished adult female patient in no acute distress. Vital signs upon presentation are temperature 98.0F, pulse 102, respirations 20, blood pressure 128/84, pulse ox 100% on room air.) Respiratory exam: Present: normal lung sounds bilaterally. Absent: respiratory distress, wheezes, rales, rhonchi, stridor Cardiovascular Exam: Present: regular rate, normal rhythm, normal heart sounds. Absent: systolic murmur, diastolic murmur, rubs, gallop, clicks GI/Abdominal exam: Present: soft, tenderness (Midepigastric and right upper quadrant tenderness), normal bowel sounds. Absent: distended, guarding, rebound, rigid Neurological exam: Present: alert, oriented X3, CN II-XII intact Psychiatric exam: Present: normal affect, normal mood Skin exam: Present: warm, dry, intact, normal color. Absent: rash Course Vital Signs 01/30/20 23:32 Temperature 98.0 F Pulse Rate 102 H Respiratory 20 Rate Blood Pressure 128/84 O2 Sat by Pulse 100 Oximetry Medical Decision Making - Medical Decision Making 29-year-old female patient presented to the emergency department today for evaluation of upper abdominal pain that had been present for one hour. No vomiting, no diarrhea, no fever. Physical examination revealed midepigastric and right upper quadrant tenderness. Labs reviewed and were unremarkable. Ultrasound of the right upper quadrant was obtained, showed no abnormalities. Upon reevaluation patient does report improvement of symptoms that she still do es have mild pain. We will discharge to follow-up with her primary care physician for recheck in 1-2 days. Return parameters were discussed in detail. She verbalizes understanding and agrees with this plan. - Lab Data Result diagrams: 01/31/20 00:12 01/31/20 00:12 Lab Results 01/31/20 01/31/20 01/31/20 Range/Units 00:05 00:05 00:12 WBC 8.3 (3.8-10.6) k/uL RBC 4.27 (3.80-5.40) m/uL Hgb 12.9 (11.4-16.0) gm/dL Hct 39.3 (34.0-46.0) % MCV 92.1 (80.0-100.0) fL MCH 30.1 (25.0-35.0) pg MCHC 32.7 (31.0-37.0) g/dL RDW 13.5 (11.5-15.5) % Plt Count 293 (150-450) k/uL Neutrophils % 56 % Lymphocytes % 30 % Monocytes % 7 % Eosinophils % 5 % Basophils % 1 % Neutrophils # 4.6 (1.3-7.7) k/uL Lymphocytes # 2.5 (1.0-4.8) k/uL Monocytes # 0.5 (0-1.0) k/uL Eosinophils # 0.4 (0-0.7) k/uL Basophils # 0.1 (0-0.2) k/uL Sodium (137-145) mmol/L Potassium (3.5-5.1) mmol/L Chloride (98-107) mmol/L Carbon Dioxide (22-30) mmol/L Anion Gap mmol/L BUN (7-17) mg/dL Creatinine (0.52-1.04) mg/dL Est GFR (CKD-EPI)AfAm (>60 ml/min/1.73 sqM) Est GFR (CKD-EPI)NonAf (>60 ml/min/1.73 sqM) Glucose (74-99) mg/dL Plasma Lactic Acid Konstantin (0.7-2.0) mmol/L Calcium (8.4-10.2) mg/dL Total Bilirubin (0.2-1.3) mg/dL AST (14-36) U/L ALT (4-34) U/L Alkaline Phosphatase (38-126) U/L Total Protein (6.3-8.2) g/dL Albumin (3.5-5.0) g/dL Amylase (30-110) U/L Lipase (23-300) U/L Urine Color Yellow Urine Appearance Cloudy H (Clear) Urine pH 6.0 (5.0-8.0) Ur Specific [place] 1.019 (1.001-1.035) Urine Protein Negative (Negative) Urine Glucose (UA) Negative (Negative) Urine Ketones Negative (Negative) Urine Blood Negative (Negative) Urine Nitrite Negative (Negative) Urine Bilirubin Negative (Negative) Urine Urobilinogen <2.0 (<2.0) mg/dL Ur Leukocyte Esterase Trace H (Negative) Urine RBC 1 (0-5) /hpf Urine WBC 3 (0-5) /hpf Ur Squamous Epith Cells 7 H (0-4) /hpf Urine Bacteria Rare H (None) /hpf Hyaline Casts 1 (0-2) /lpf Urine Mucus Moderate H (None) /hpf Urine HCG, Qual Not Detected (Not Detectd) 01/31/20 01/31/20 Range/Units 00:12 00:12 WBC (3.8-10.6) k/uL RBC (3.80-5.40) m/uL Hgb (11.4-16.0) gm/dL Hct (34.0-46.0) % MCV (80.0-100.0) fL MCH (25.0-35.0) pg MCHC (31.0-37.0) g/dL RDW (11.5-15.5) % Plt Count (150-450) k/uL Neutrophils % % Lymphocytes % % Monocytes % % Eosinophils % % Basophils % % Neutrophils # (1.3-7.7) k/uL Lymphocytes # (1.0-4.8) k/uL Monocytes # (0-1.0) k/uL Eosinophils # (0-0.7) k/uL Basophils # (0-0.2) k/uL Sodium 138 (137-145) mmol/L Potassium 4.0 (3.5-5.1) mmol/L Chloride 108 H (98-107) mmol/L Carbon Dioxide 21 L (22-30) mmol/L Anion Gap 9 mmol/L BUN 11 (7-17) mg/dL Creatinine 0.89 (0.52-1.04) mg/dL Est GFR (CKD-EPI)AfAm >90 (>60 ml/min/1.73 sqM) Est GFR (CKD-EPI)NonAf 89 (>60 ml/min/1.73 sqM) Glucose 80 (74-99) mg/dL Plasma Lactic Acid Konstantin 2.0 (0.7-2.0) mmol/L Calcium 9.0 (8.4-10.2) mg/dL Total Bilirubin <0.1 L (0.2-1.3) mg/dL AST 22 (14-36) U/L ALT 13 (4-34) U/L Alkaline Phosphatase 69 (38-126) U/L Total Protein 6.6 (6.3-8.2) g/dL Albumin 3.8 (3.5-5.0) g/dL Amylase 45 (30-110) U/L Lipase 49 (23-300) U/L Urine Color Urine Appearance (Clear) Urine pH (5.0-8.0) Ur Specific [place] (1.001-1.035) Urine Protein (Negative) Urine Glucose (UA) (Negative) Urine Ketones (Negative) Urine Blood (Negative) Urine Nitrite (Negative) Urine Bilirubin (Negative) Urine Urobilinogen (<2.0) mg/dL Ur Leukocyte Esterase (Negative) Urine RBC (0-5) /hpf Urine WBC (0-5) /hpf Ur Squamous Epith Cells (0-4) /hpf Urine Bacteria (None) /hpf Hyaline Casts (0-2) /lpf Urine Mucus (None) /hpf Urine HCG, Qual (Not Detectd) - Radiology Data Radiology results: report reviewed Ultrasound of the right upper quadrant abdomen is obtained. Report was reviewed in its entirety. Impression by Dr. Parisi shows no gallstones or dilated ducts. No focal liver defect. Disposition Clinical Impression: Abdominal pain Disposition: HOME SELF-CARE Condition: Good Instructions (If sedation given, give patient instructions): Abdominal Pain (ED) Additional Instructions: Start with soft diet and advance as tolerated. Follow-up through primary care physician for recheck as soon as possible. Return to the emergency department immediately for any new, worsening, or concerning symptoms. Is patient prescribed a controlled substance at d/c from ED?: No Referrals: Michaela Freeman III, MD [Primary Care Provider] - 1-2 days Time of Disposition: 01:39
[2020-01-31 00:44] LABS: Appearance,Urine Cloudy (Clear); Bacteria,Urine Rare /hpf; Bilirubin,Urine Negative (Negative); Blood,Urine Negative (Negative); Color,Urine Yellow; Glucose,Urine (UA) Negative (Negative); Hyaline Casts,Urine 1 /lpf (0-2); Ketones,Urine Negative (Negative); Leukocyte Esterase,Urine Trace (Negative); Mucus,Urine Moderate /hpf; Nitrite,Urine Negative (Negative); Protein,Urine Negative (Negative); RBC,Urine 1 /hpf (0-5); Specific Gravity,Urine 1.019 (1.001-1.035); Squamous Epithelial Cell,Urine 7 /hpf (0-4); Urobilinogen,Urine <2.0 mg/dL (<2.0); WBC,Urine 3 /hpf (0-5)
--- NOTE | 2020-01-31 01:21 | US ---
EXAMINATION TYPE: US abdomen limited DATE OF EXAM: 01/31/2020 COMPARISON: NONE CLINICAL HISTORY: RUQ, midepigastric tenderness. Difficult and limited exam due to patient pain and o verlying bowel gas, could not push on patient's abdomen EXAM MEASUREMENTS: Liver Length: 16.8 cm Gallbladder Wall: 0.2 cm CBD: 0.3 cm Right Kidney: 9.7 x 4.7 x 4.9 cm Pancreas: Obscured by bowel gas Liver: Heterogeneous Gallbladder: wnl Evidence for sonographic Pugh's sign: Patient had pain during entire scan CBD: wnl as visualized Right Kidney: No hydronephrosis or masses seen IMPRESSION: No gallstones or dilated ducts. No focal liver defect.
[2020-01-31] MEDS ORDERED: ACET/COD 300 MG/30 MG STARTER PACK 6 TAB BTL PO STA (01:40)
[2020-01-31] MEDS ORDERED: HYDROmorphone 0.5 MG/0.5 ML SYRINGE IVP STA (01:44)
[2020-01-31] MEDS ORDERED: FAMOTIDINE 20 MG/2 ML VIAL IV STA (01:44)
[2020-01-31 01:46] VITALS: BP 126/90; PULSE 80; RESP 16; TEMP 98
[2020-01-31] MEDS ORDERED: ONDANSETRON 4 MG ODT STARTER PACK 2 TAB BTL PO STA (01:51)
== END 2020-01-31 02:09 | disposition home or self-care (01) ==
LOC: EC 23:31
DX: R10.13 Epigastric pain (principal); F17.200 Nicotine dependence, unspecified, uncomplicated; Z79.3 Long term (current) use of hormonal contraceptives; Z91.018 Allergy to other foods; Z88.1 Allergy status to other antibiotic agents; Z91.048 Other nonmedicinal substance allergy status
CPT/HCPCS: 36415; 76705; 80053; 81001; 81025; 82150; 83605; 83690; 85025; 96361; 96374; 96375; 96376; 99284

== ENCOUNTER 2020-02-01 10:30 | Emergency (ER) | payer OTHER ==
[2020-02-01 10:35] VITALS: RESP 20; TEMP 98.2
[2020-02-01] MEDS ORDERED: HYDROmorphone 0.5 MG/0.5 ML SYRINGE IVP STA ×2 (10:46→12:58)
[2020-02-01] MEDS ORDERED: SODIUM CHLORIDE 0.9% 500 ML 500 ML IV ONE (10:47)
[2020-02-01] MEDS ORDERED: SODIUM CHLORIDE 0.9% 1,000 ML IV ONE (10:47)
--- NOTE | 2020-02-01 10:53 | ED ---
Abdominal Pain HPI - General Chief Complaint: Abdominal Pain Stated Complaint: abd pain Time Seen by Provider: 02/01/20 10:36 Source: patient, family Mode of arrival: ambulatory Limitations: no limitations - History of Present Illness Initial Comments: 29-year-old female who denies any significant past medical history presenting today for chief complaint of epigastric pain. Patient states it began Friday and she presents emergency department. Patient states that she has had no associated symptoms such as nausea vomiting diarrhea chest pain or shortness of breath. Patient states that the pain is very sharp and has been persistent. She states was discharged after laboratory studies medications and labs. She states pain has been present since discharge and she f/u with her primary care provider who recommended patient come to the ER for CT and further evaluation. Patient appears uncomfortable upon arrival, however nontoxic. - Related Data Home Medications Medication Instructions Recorded Confirmed Aviane 1 tab PO DAILY 11/12/16 11/12/16 Cetirizine HCl [Zyrtec] 10 mg PO DAILY 11/12/16 11/12/16 Clindamycin Phos/Benzoyl Perox 1 applic TOPICAL BID 11/12/16 11/12/16 [Benzaclin Gel] Naproxen Sodium [Naproxen Sodium 550 mg PO DAILY PRN 11/12/16 11/12/16 DS] Previous Rx's Medication Instructions Recorded Levofloxacin [Levaquin] 750 mg PO DAILY #14 tab 11/12/16 Naproxen [Naprosyn] 500 mg PO Q12HR #30 tab 11/12/16 Ondansetron [Zofran] 4 mg PO Q8HR PRN #30 tab 11/12/16 Ondansetron Odt [Zofran Odt] 4 mg PO Q8HR PRN #6 tab 07/21/17 Pantoprazole Sodium [Protonix] 40 mg PO DAILY 7 Days #7 tablet. 02/01/20 Allergies Allergy/AdvReac Type Severity Reaction Status Date / Time mani Allergy Severe Swelling Verified 02/01/20 10:35 cefaclor [From Ceclor] Allergy Rash/Hives Verified 02/01/20 10:35 kiwi Allergy Swelling Verified 02/01/20 10:35 cats Allergy Cough Uncoded 02/01/20 10:35 Review of Systems ROS Statement: Those systems with pertinent positive or pertinent negative responses have been documented in the HPI. ROS Other: All systems not noted in ROS Statement are negative. Past Medical History Past Medical History: GERD/Reflux Additional Past Medical History / Comment(s): bursitis both hips, History of Any Multi-Drug Resistant Organisms: None Reported Past Surgical History: No Surgical Hx Reported Past Anesthesia/Blood Transfusion Reactions: No Reported Reaction Additional Past Anesthesia/Blood Transfusion Reaction / Comment(s): mom gets bad headaches after anesthesia Past Psychological History: Anxiety, Depression Smoking Status: Current every day smoker Past Alcohol Use History: Occasional Past Drug Use History: Marijuana - Past Family History Mother Family Medical History: No Reported History Additional Family Medical History / Comment(s): car accident with back problems General Exam - General Exam Comments Initial Comments: General: The patient is awake and alert, appears uncomfortable Eye: +3 mm pupils are equal, round and reactive to light, extra-ocular movements are intact. No nystagmus. There is normal conjunctiva bilaterally. No signs of icterus. Ears, nose, mouth and throat: There are moist mucous membranes and no oral les ions. Neck: The neck is supple, there is no tenderness or JVD. Cardiovascular: There is a regular rate and rhythm. No murmur, rub or gallop is appreciated. Respiratory: Lungs are clear to auscultation, respirations are non-labored, breath sounds are equal. No wheezes, stridor, rales, or rhonchi. Gastrointestinal: Soft, non-distended, tender to palpation of the epigastric region of the abdomen, remaining exam nontender and is without masses or organomegaly noted. There is no rebound or guarding present. No CVA tenderness. Musculoskeletal: Normal ROM, no tenderness. Strength 5/5. Sensation intact. Radial pulses equal bilaterally 2+. Neurological: A&O x 3. CN II-XII intact grossly, There are no obvious motor or sensory deficits. Coordination appears grossly intact. Speech is normal. Skin: Skin is warm and dry and no rashes or lesions are noted. Psychiatric: Cooperative, appropriate mood & affect, normal judgment. Limitations: no limitations Course Vital Signs 02/01/20 02/01/20 10:31 12:27 Temperature 98.2 F Pulse Rate 103 H 93 Respiratory 20 20 Rate Blood Pressure 112/71 129/88 O2 Sat by Pulse 99 100 Oximetry Medical Decision Making - Medical Decision Making 29-year-old female presenting today for chief complaint of abdominal pain. Epigastric, better than on Friday but persistent. Patient Lipase WNL. CT no acute findings aside from colitis that may atribute to symptoms. No new diarrhea (chronic), no vomiting, fevers. Patient labs stable she will be discharge with protonix and GI f/u. She was offered admission for intractable pain but refused. Patient is aware of strict return parameters for pain and importance of f/u. Discussed ddx including colitis (crohns), PUD or other etiology that may need diagnosis via endoscopy. Patient discharged appearing well. Dr Batista agreeable to care plan. - Lab Data Result diagrams: 02/01/20 10:47 02/01/20 10:47 Lab Results 02/01/20 02/01/20 02/01/20 Range/Units 10:47 10:47 11:35 WBC 8.4 (3.8-10.6) k/uL RBC 4.29 (3.80-5.40) m/uL Hgb 12.8 (11.4-16.0) gm/dL Hct 39.7 (34.0-46.0) % MCV 92.5 (80.0-100.0) fL MCH 29.9 (25.0-35.0) pg MCHC 32.3 (31.0-37.0) g/dL RDW 13.3 (11.5-15.5) % Plt Count 289 (150-450) k/uL Neutrophils % 68 % Lymphocytes % 20 % Monocytes % 5 % Eosinophils % 5 % Basophils % 0 % Neutrophils # 5.7 (1.3-7.7) k/uL Lymphocytes # 1.7 (1.0-4.8) k/uL Monocytes # 0.4 (0-1.0) k/uL Eosinophils # 0.4 (0-0.7) k/uL Basophils # 0.0 (0-0.2) k/uL Sodium 137 (137-145) mmol/L Potassium 4.2 (3.5-5.1) mmol/L Chloride 110 H (98-107) mmol/L Carbon Dioxide 21 L (22-30) mmol/L Anion Gap 6 mmol/L BUN 8 (7-17) mg/dL Creatinine 0.85 (0.52-1.04) mg/dL Est GFR (CKD-EPI)AfAm >90 (>60 ml/min/1.73 sqM) Est GFR (CKD-EPI)NonAf >90 (>60 ml/min/1.73 sqM) Glucose 90 (74-99) mg/dL Calcium 8.9 (8.4-10.2) mg/dL Total Bilirubin 0.1 L (0.2-1.3) mg/dL AST 24 (14-36) U/L ALT 16 (4-34) U/L Alkaline Phosphatase 90 (38-126) U/L Total Protein 6.9 (6.3-8.2) g/dL Albumin 4.0 (3.5-5.0) g/dL Amylase 47 (30-110) U/L Lipase 39 (23-300) U/L Urine Color Light Yellow Urine Appearance Clear (Clear) Urine pH 5.5 (5.0-8.0) Ur Specific [place] 1.005 (1.001-1.035) Urine Protein Negative (Negative) Urine Glucose (UA) Negative (Negative) Urine Ketones Negative (Negative) Urine Blood Negative (Negative) Urine Nitrite Negative (Negative) Urine Bilirubin Negative (Negative) Urine Urobilinogen <2.0 (<2.0) mg/dL Ur Leukocyte Esterase Negative (Negative) Urine HCG, Qual (Not Detectd) 02/01/20 Range/Units 11:35 WBC (3.8-10.6) k/uL RBC (3.80-5.40) m/uL Hgb (11.4-16.0) gm/dL Hct (34.0-46.0) % MCV (80.0-100.0) fL MCH (25.0-35.0) pg MCHC (31.0-37.0) g/dL RDW (11.5-15.5) % Plt Count (150-450) k/uL Neutrophils % % Lymphocytes % % Monocytes % % Eosinophils % % Basophils % % Neutrophils # (1.3-7.7) k/uL Lymphocytes # (1.0-4.8) k/uL Monocytes # (0-1.0) k/uL Eosinophils # (0-0.7) k/uL Basophils # (0-0.2) k/uL Sodium (137-145) mmol/L Potassium (3.5-5.1) mmol/L Chloride (98-107) mmol/L Carbon Dioxide (22-30) mmol/L Anion Gap mmol/L BUN (7-17) mg/dL Creatinine (0.52-1.04) mg/dL Est GFR (CKD-EPI)AfAm (>60 ml/min/1.73 sqM) Est GFR (CKD-EPI)NonAf (>60 ml/min/1.73 sqM) Glucose (74-99) mg/dL Calcium (8.4-10.2) mg/dL Total Bilirubin (0.2-1.3) mg/dL AST (14-36) U/L ALT (4-34) U/L Alkaline Phosphatase (38-126) U/L Total Protein (6.3-8.2) g/dL Albumin (3.5-5.0) g/dL Amylase (30-110) U/L Lipase (23-300) U/L Urine Color Urine Appearance (Clear) Urine pH (5.0-8.0) Ur Specific [place] (1.001-1.035) Urine Protein (Negative) Urine Glucose (UA) (Negative) Urine Ketones (Negative) Urine Blood (Negative) Urine Nitrite (Negative) Urine Bilirubin (Negative) Urine Urobilinogen (<2.0) mg/dL Ur Leukocyte Esterase (Negative) Urine HCG, Qual Not Detected (Not Detectd) Disposition Clinical Impression: Abdominal pain, Epigastric pain, Colitis Disposition: ADMITTED IP TO THIS [facility] Condition: Stable Instructions (If sedation given, give patient instructions): Peptic Ulcer (ED), Colitis (ED) Additional Instructions: Please use medication as discussed. Please follow-up with family doctor in the next 2 days. Please follow-up with GI in the next week, Dr> Arlene. Please return to emergency room if the symptoms increase or worsen or for any other concerns. Prescriptions: Pantoprazole Sodium [Protonix] 40 mg PO DAILY 7 Days #7 tablet.dr Is patient prescribed a controlled substance at d/c from ED?: No Referrals: Michaela Freeman III, MD [Primary Care Provider] - 1-2 days Ketty Jacobs MD [STAFF PHYSICIAN] - 1-2 days Time of Disposition: 13:00
[2020-02-01 11:00] LABS: Basophils % (A) 0 %; Eosinophils # (A) 0.4 k/uL (0-0.7); Eosinophils % (A) 5 %; HCT 39.7 % (34.0-46.0); HGB 12.8 gm/dL (11.4-16.0); Lymphocytes # (A) 1.7 k/uL (1.0-4.8); Lymphocytes % (A) 20 %; MCH 29.9 pg (25.0-35.0); MCHC 32.3 g/dL (31.0-37.0); MCV 92.5 fL (80.0-100.0); Mean Platelet Volume 6.9; Monocytes # (A) 0.4 k/uL (0-1.0); Monocytes % (A) 5 %; Neutrophils # (A) 5.7 k/uL (1.3-7.7); Neutrophils % (A) 68 %; Platelet Count 289 k/uL (150-450); RBC 4.29 m/uL (3.80-5.40); RDW 13.3 % (11.5-15.5); WBC 8.4 k/uL (3.8-10.6)
[2020-02-01] MEDS ORDERED: SODIUM CHLORIDE 0.9% 1,000 ML IV SCH (11:00)
[2020-02-01 11:22] LABS: ALT 16 U/L (4-34); AST 24 U/L (14-36); African American GFR (CKD) >90 (>60 ml/min/1.73 sqM); Alkaline Phosphatase 90 U/L (38-126); Amylase 47 U/L (30-110); Anion Gap 6 mmol/L; Blood Urea Nitrogen 8 mg/dL (7-17); Calcium 8.9 mg/dL (8.4-10.2); Carbon Dioxide 21 mmol/L (22-30); Chloride 110 mmol/L (98-107); Glucose 90 mg/dL (74-99); Non-African American GFR(CKD) >90 (>60 ml/min/1.73 sqM); Potassium 4.2 mmol/L (3.5-5.1); Sodium 137 mmol/L (137-145); Total Bilirubin 0.1 mg/dL (0.2-1.3); Total Protein 6.9 g/dL (6.3-8.2)
[2020-02-01] MEDS ORDERED: PANTOPRAZOLE 40 MG/10 ML VIAL IVP STA (11:24)
[2020-02-01 12:00] LABS: Appearance,Urine Clear (Clear); Bilirubin,Urine Negative (Negative); Blood,Urine Negative (Negative); Color,Urine Light Yellow; Glucose,Urine (UA) Negative (Negative); Ketones,Urine Negative (Negative); Leukocyte Esterase,Urine Negative (Negative); Nitrite,Urine Negative (Negative); PH, Urine 5.5 (5.0-8.0); Protein,Urine Negative (Negative); Specific Gravity,Urine 1.005 (1.001-1.035); Urobilinogen,Urine <2.0 mg/dL (<2.0)
--- NOTE | 2020-02-01 12:05 | CT ---
EXAMINATION TYPE: CT abdomen pelvis w con DATE OF EXAM: 02/01/2020 COMPARISON: 11/12/2016 HISTORY: mid epigastric pain CT DLP: 1148 mGycm Automated exposure control for dose reduction was used. CONTRAST: CT scan of the abdomen pelvis is performed with IV Contrast, patient injected with 100 mL of Isovue 3 00. FINDINGS- LUNG BASES-bilateral subsegmental areas of consolidation. LIVER/GB-localized area of fatty infiltration involving left lobe. PANCREAS- No gross abnormality is seen. SPLEEN- No gross abnormality is seen. ADRENALS- No gross abnormality is seen. KIDNEYS/BLADDER- no hydronephrosis nephrolithiasis or renal mass. BOWEL-questionable mild wall thickening involving the splenic flexure and right colon. Could be relat ed to incomplete distention correlate clinically to exclude a colitis.. LYMPH NODES- No greater than 1cm abdominal or pelvic lymph nodes areappreciated. OSSEOUS STRUCTURES- No significant abnormality is seen. OTHER- uterus somewhat lobulated. Correlate for fibroids. IMPRESSION- 1. Wall thickening of the splenic flexure and right colon may been the basis of incomplete distention correlate clinically to exclude a mild colitis. 2. Nonvisualization the appendix. No definite inflammatory changes in the right lower quadrant. 3. Correlate for uterine fibroid. 4. Bibasilar subsegmental atelectasis or infiltrate correlate clinically.
[2020-02-01 12:28] VITALS: BP 129/88; PULSE 93
--- NOTE | 2020-02-01 12:29 | XR ---
EXAMINATION TYPE: XR chest 2V DATE OF EXAM: 02/01/2020 COMPARISON: NONE HISTORY: Epigastric pain and chest pain TECHNIQUE: Frontal and lateral views of the chest are obtained. FINDINGS: There is no focal air space opacity, pleural effusion, or pneumothorax seen. The cardiac silhouette size is within normal limits. The osseous structures are intact. IMPRESSION: No acute cardiopulmonary process.
[2020-02-01] MEDS ORDERED: ACET/COD 300 MG/30 MG STARTER PACK 6 TAB BTL PO STA (12:58)
== END 2020-02-01 13:43 | disposition other institution (70) ==
LOC: EC 10:30
DX: K52.9 Noninfective gastroenteritis and colitis, unspecified (principal); F17.200 Nicotine dependence, unspecified, uncomplicated; Z79.3 Long term (current) use of hormonal contraceptives; Z79.899 Other long term (current) drug therapy; Z91.018 Allergy to other foods; Z91.09 Other allergy status, other than to drugs and biological substances; Z88.1 Allergy status to other antibiotic agents
CPT/HCPCS: 36415; 80053; 82150; 83690; 85025; 81003; 81025; 71046; 74177; 99285; 96374; 96375; 96376; 96361 ×2; C9113; J1170; Q9967

== ENCOUNTER 2020-02-04 12:57 | Day surgery (SDC) | payer OTHER ==
[2020-02-03 09:31] VITALS: BMI 32.5
[~2020-02-04 12:57] MED LIST: LACTATED RINGERS 1,000 ML IV SCH; LIDOCAINE 1% (10MG/ML) FOR IV START INTRADERMA PRN; MIDAZOLAM 2 MG/2 ML VIAL IV PRN
[2020-02-04 13:40] VITALS: TEMP 96.6
[2020-02-04] MEDS ORDERED: PROPOFOL 10 MG/ML 20 ML VIAL IV ONE (13:50)
[2020-02-04] MEDS ORDERED: LIDOCAINE 1% INJ 10MG/ML (20 ML MDV) ONE (13:50)
[2020-02-04] MEDS ORDERED: ONDANSETRON 4 MG/2 ML VIAL ONE (13:50)
--- NOTE | 2020-02-04 14:02 | P.PCN ---
Date of Procedure: 02/04/20 Procedure(s) Performed: BRIEF HISTORY: Patient is a 29-year-old, pleasant, female, scheduled for an upper endoscopy as a part of evaluation of severe epigastric pain for the last 1 week duration. She went to the emergency room and had a CT of abdomen and pelvis done that was normal. She was started on Protonix 40 mg daily and still remains a. She is hence scheduled for an upper endoscopy to evaluate further.. PROCEDURE PERFORMED: Esophagogastroduodenoscopy with biopsy. PREOPERATIVE DIAGNOSIS: Severe epigastric pain of one-week duration. IV sedation per anesthesia. PROCEDURE: After informed consent was obtained, the patient was brought into the endoscopy unit. IV sedation was administered by Anesthesia under continuous monitoring. Initially the Olympus GIF-140 video endoscope was inserted into the mouth. Esophagus intubated without any difficulty. It was gradually advanced into the stomach and duodenum and carefully examined. The bulb and the second part of the duodenum appeared normal. Mild duodenitis seen. Biopsies were done from the duodenum to rule out celiac disease. The scope at this time was withdrawn to the stomach, adequately insufflated with air, and upon careful examination, mucosa of the antrum had mild gastritis and biopsies were done from this area., body, cardia and the fundus appeared normal. The scope was then withdrawn into the esophagus. The GE junction was located at 39 cm from the incisors. The esophagus appeared normal. There were no erosions or ulcerations seen and the patient tolerated the procedure well. IMPRESSION: 1. Mild antral gastritis. 2. Mild duodenitis. RECOMMENDATIONS: The findings of this examination were discussed with the stone vides as well as a family. She was advised to follow with the biopsy results. She will continue with Protonix 40 mg twice daily and she'll be seen in office in 2-3 weeks.
[2020-02-04 14:26] VITALS: BP 119/74; PULSE 70; RESP 20
== END 2020-02-04 14:32 | disposition home or self-care (01) ==
LOC: ORWHC2ENDO 12:57
PROVIDERS: ATTEND Internal Medicine Gastroenterology
DX: K29.50 Unspecified chronic gastritis without bleeding (principal); K29.80 Duodenitis without bleeding; K21.9 Gastro-esophageal reflux disease without esophagitis; Z88.1 Allergy status to other antibiotic agents; Z79.899 Other long term (current) drug therapy; Z79.891 Long term (current) use of opiate analgesic; Z79.3 Long term (current) use of hormonal contraceptives
CPT/HCPCS: 81025; 88305; 43239; J2405; J2001; J2704

== ENCOUNTER → 2020-06-13 | Outpatient (CLI) | payer OTHER | END | disposition home or self-care (01) | LOC: LABWHC1 12:56 | PROVIDERS: ATTEND Pediatrics Pediatric Infectious Diseases | DX: Z03.818 Encounter for observation for suspected exposure to other biological agents ruled out (principal) | CPT/HCPCS: U0003; C9803 ==

== ENCOUNTER 2020-11-15 17:01 | Inpatient (IN) | payer OTHER ==
[2020-11-15] MEDS ORDERED: SODIUM CHLORIDE 0.9% 1,000 ML IV STA (18:49)
[2020-11-15] MEDS ORDERED: ACETAMINOPHEN TAB 500 MG TAB PO STA (18:49)
[2020-11-15] MEDS ORDERED: ONDANSETRON 4 MG/2 ML VIAL IVP STA (19:03)
[2020-11-15] MEDS ORDERED: HYDROmorphone 1 MG/ML 1 ML SYRINGE IVP STA ×2 (19:03→20:55)
--- NOTE | 2020-11-15 19:06 | ED ---
General Adult HPI - General Chief complaint: Abdominal Pain Stated complaint: Abd pain Time Seen by Provider: 11/15/20 18:49 Source: patient Mode of arrival: ambulatory Limitations: no limitations - History of Present Illness Initial comments: Dictation was produced using joiz dictation software. please excuse any grammatical, word or spelling errors. This patient was cared for during a federal and state declared state of emergency secondary to Covid 19 Chief Complaint: 30-year-old female with 1 week of bilateral flank pain and u rinary symptoms History of Present Illness: Patient is a 22-year-old female she has past medical history of urinary tract infection. Patient states over the last several days she's been developing worsening flank pain. She states it started on the right and then started to involve the left hand and now it's both flanks. Patient states over the last 2 days she's been developing urinary symptoms including frequency and dysuria. Patient has history of pyelonephritis. States her symptoms are similar to when she was diagnosed with kidney infection. The ROS documented in this emergency department record has been reviewed and confirmed by me. Those systems with pertinent positive or negative responses have been documented in the HPI. All other systems are other negative and/or noncontributory. PHYSICAL EXAM: General Impression: Alert and oriented x3, not in acute distress HEENT: Normocephalic atraumatic, extra-ocular movements intact, pupils equal and reactive to light bilaterally, mucous membranes moist. Cardiovascular: Heart regular rate and rhythm Chest: Able to complete full sentences, no retractions, no tachypnea Abdomen: abdomen soft, non-tender, non-distended, no organomegaly Musculoskeletal: Pulses present and equal in all extremities, no peripheral edema, bilateral CVA tenderness with thump Motor: no focal deficits noted Neurological: CN II-XII grossly intact, no focal motor or sensory deficits noted Skin: Intact with no visualized rashes Psych: Normal affect and mood ED course: 30 Year old female presents to the emergency department for urinary symptoms. She also has CVA tenderness.. Vital signs upon arrival shows him to 11.9, heart rate of 139, worse vital signs within acceptable limits. Return evaluation obtained leukocytosis 17.2. Neutrophils of 13.5. Metabolic panel is unremarkable. Urinalysis is positive for UTI. Greater than 182 white blood cells. Patient is ALLERGIC to cephalosporins. Patient given ciprofloxacin. She states she got Levaquin 30 last admission for this. Disposition options were discussed with patient and she requested to be admitted. Patient be admitted. Case discussed Dr. she was willing to accept patients care. EKG interpretation: Ventricular rate 119, sinus tachycardia, MA interval 150, QRS 80, QTC 422. No MA prolongation, no QTC prolongation, isolated T-wave inversion in lead 3. No EKG for comparison. Overall, this EKG is nonspecific. - Related Data Home Medications Medication Instructions Recorded Confirmed DULoxetine HCL [Cymbalta] 90 mg PO DAILY 11/15/20 11/15/20 Diazepam [Valium] 5 - 10 mg PO Q12H 11/15/20 11/15/20 Omeprazole 20 mg PO DAILY 11/15/20 11/15/20 Ondansetron HCl [Zofran] 4 mg PO Q6H PRN 11/15/20 11/15/20 Allergies Allergy/AdvReac Type Severity Reaction Status Date / Time mani Allergy Severe LIPS SWELL Verified 11/15/20 21:22 cefaclor [From Ceclor] Allergy Rash/Hives Verified 11/15/20 21:22 kiwi Allergy Swelling Verified 11/15/20 21:22 cats Allergy STUFFY Uncoded 11/15/20 21:22 NOSE, ITCHY WATERY EYES, ITCHY NOSE Review of Systems ROS Statement: Those systems with pertinent positive or pertinent negative responses have been documented in the HPI. ROS Other: All systems not noted in ROS Statement are negative. Past Medical History Past Medical History: GERD/Reflux, Osteoarthritis (OA) Additional Past Medical History / Comment(s): bursitis both hips, arthritis L4 L5, hx kidney infection. states abd pain. History of Any Multi-Drug Resistant Organisms: None Reported Past Surgical History: No Surgical Hx Reported Additional Past Surgical History / Comment(s): wisdom teeth Past Anesthesia/Blood Transfusion Reactions: Motion Sickness Additional Past Anesthesia/Blood Transfusion Reaction / Comment(s): mother has difficulty waking up. Past Psychological History: Anxiety, Depression Smoking Status: Vaper Past Alcohol Use History: Occasional Past Drug Use History: Marijuana - Past Family History Mother Family Medical History: No Reported History Additional Family Medical History / Comment(s): . General Exam Limitations: no limitations Course Vital Signs 11/15/20 11/15/20 18:42 20:41 Temperature 101.9 F H 99.6 F Pulse Rate 139 H 102 H Respiratory 22 18 Rate Blood Pressure 106/73 103/66 O2 Sat by Pulse 100 95 Oximetry Medical Decision Making - Lab Data Result diagrams: 11/15/20 18:58 11/15/20 18:58 Lab Results 11/15/20 11/15/20 11/15/20 Range/Units 18:58 18:58 18:58 WBC 17.2 H (3.8-10.6) k/uL RBC 4.09 (3.80-5.40) m/uL Hgb 12.6 (11.4-16.0) gm/dL Hct 36.7 (34.0-46.0) % MCV 89.7 (80.0-100.0) fL MCH 30.9 (25.0-35.0) pg MCHC 34.4 (31.0-37.0) g/dL RDW 13.2 (11.5-15.5) % Plt Count 260 (150-450) k/uL MPV 6.9 Neutrophils % 79 % Lymphocytes % 10 % Monocytes % 8 % Eosinophils % 2 % Basophils % 0 % Neutrophils # 13.5 H (1.3-7.7) k/uL Lymphocytes # 1.8 (1.0-4.8) k/uL Monocytes # 1.3 H (0-1.0) k/uL Eosinophils # 0.3 (0-0.7) k/uL Basophils # 0.0 (0-0.2) k/uL Sodium 134 L (137-145) mmol/L Potassium 4.0 (3.5-5.1) mmol/L Chloride 99 (98-107) mmol/L Carbon Dioxide 24 (22-30) mmol/L Anion Gap 11 mmol/L BUN 9 (7-17) mg/dL Creatinine 1.09 H (0.52-1.04) mg/dL Est GFR (CKD-EPI)AfAm 80 (>60 ml/min/1.73 sqM) Est GFR (CKD-EPI)NonAf 70 (>60 ml/min/1.73 sqM) Glucose 102 H (74-99) mg/dL Plasma Lactic Acid Konstantin (0.7-2.0) mmol/L Calcium 8.7 (8.4-10.2) mg/dL Total Bilirubin 0.4 (0.2-1.3) mg/dL AST 24 (14-36) U/L ALT 13 (4-34) U/L Alkaline Phosphatase 119 (38-126) U/L Total Protein 7.2 (6.3-8.2) g/dL Albumin 4.2 (3.5-5.0) g/dL Urine Color Yellow Urine Appearance Cloudy H (Clear) Urine pH 5.5 (5.0-8.0) Ur Specific [place] 1.013 (1.001-1.035) Urine Protein 1+ H (Negative) Urine Glucose (UA) Negative (Negative) Urine Ketones Negative (Negative) Urine Blood Small H (Negative) Urine Nitrite Negative (Negative) Urine Bilirubin Negative (Negative) Urine Urobilinogen <2.0 (<2.0) mg/dL Ur Leukocyte Esterase Large H (Negative) Urine RBC 8 H (0-5) /hpf Urine WBC >182 H (0-5) /hpf Urine WBC Clumps Many H (None) /hpf Ur Squamous Epith Cells 3 (0-4) /hpf Urine Bacteria Few H (None) /hpf Urine Mucus Few H (None) /hpf 11/15/20 Range/Units 18:58 WBC (3.8-10.6) k/uL RBC (3.80-5.40) m/uL Hgb (11.4-16.0) gm/dL Hct (34.0-46.0) % MCV (80.0-100.0) fL MCH (25.0-35.0) pg MCHC (31.0-37.0) g/dL RDW (11.5-15.5) % Plt Count (150-450) k/uL MPV Neutrophils % % Lymphocytes % % Monocytes % % Eosinophils % % Basophils % % Neutrophils # (1.3-7.7) k/uL Lymphocytes # (1.0-4.8) k/uL Monocytes # (0-1.0) k/uL Eosinophils # (0-0.7) k/uL Basophils # (0-0.2) k/uL Sodium (137-145) mmol/L Potassium (3.5-5.1) mmol/L Chloride (98-107) mmol/L Carbon Dioxide (22-30) mmol/L Anion Gap mmol/L BUN (7-17) mg/dL Creatinine (0.52-1.04) mg/dL Est GFR (CKD-EPI)AfAm (>60 ml/min/1.73 sqM) Est GFR (CKD-EPI)NonAf (>60 ml/min/1.73 sqM) Glucose (74-99) mg/dL Plasma Lactic Acid Konstantin 1.3 (0.7-2.0) mmol/L Calcium (8.4-10.2) mg/dL Total Bilirubin (0.2-1.3) mg/dL AST (14-36) U/L ALT (4-34) U/L Alkaline Phosphatase (38-126) U/L Total Protein (6.3-8.2) g/dL Albumin (3.5-5.0) g/dL Urine Color Urine Appearance (Clear) Urine pH (5.0-8.0) Ur Specific [place] (1.001-1.035) Urine Protein (Negative) Urine Glucose (UA) (Negative) Urine Ketones (Negative) Urine Blood (Negative) Urine Nitrite (Negative) Urine Bilirubin (Negative) Urine Urobilinogen (<2.0) mg/dL Ur Leukocyte Esterase (Negative) Urine RBC (0-5) /hpf Urine WBC (0-5) /hpf Urine WBC Clumps (None) /hpf Ur Squamous Epith Cells (0-4) /hpf Urine Bacteria (None) /hpf Urine Mucus (None) /hpf Disposition Clinical Impression: Pyelonephritis Disposition: ADMITTED IP TO THIS [facility] Condition: Fair Referrals: Michaela Freeman III, MD [Primary Care Provider] - 1-2 days Decision Time: 21:30
[2020-11-15 19:12] LABS: Basophils % (A) 0 %; Eosinophils # (A) 0.3 k/uL (0-0.7); Eosinophils % (A) 2 %; HCT 36.7 % (34.0-46.0); HGB 12.6 gm/dL (11.4-16.0); Lymphocytes # (A) 1.8 k/uL (1.0-4.8); Lymphocytes % (A) 10 %; MCH 30.9 pg (25.0-35.0); MCHC 34.4 g/dL (31.0-37.0); MCV 89.7 fL (80.0-100.0); Mean Platelet Volume 6.9; Monocytes # (A) 1.3 k/uL (0-1.0); Monocytes % (A) 8 %; Neutrophils # (A) 13.5 k/uL (1.3-7.7); Neutrophils % (A) 79 %; Platelet Count 260 k/uL (150-450); RBC 4.09 m/uL (3.80-5.40); RDW 13.2 % (11.5-15.5); WBC 17.2 k/uL (3.8-10.6)
[2020-11-15 19:15] LABS: Appearance,Urine Cloudy (Clear); Bacteria,Urine Few /hpf; Bilirubin,Urine Negative (Negative); Blood,Urine Small (Negative); Color,Urine Yellow; Glucose,Urine (UA) Negative (Negative); Ketones,Urine Negative (Negative); Leukocyte Esterase,Urine Large (Negative); Mucus,Urine Few /hpf; Nitrite,Urine Negative (Negative); PH, Urine 5.5 (5.0-8.0); Protein,Urine 1+ (Negative); RBC,Urine 8 /hpf (0-5); Specific Gravity,Urine 1.013 (1.001-1.035); Squamous Epithelial Cell,Urine 3 /hpf (0-4); Urobilinogen,Urine <2.0 mg/dL (<2.0); WBC,Urine >182 /hpf (0-5)
[2020-11-15 19:26] LABS: Albumin 4.2 g/dL (3.5-5.0); Calcium 8.7 mg/dL (8.4-10.2); Total Bilirubin 0.4 mg/dL (0.2-1.3); Total Protein 7.2 g/dL (6.3-8.2)
[2020-11-15] MEDS ORDERED: CIPROFLOXACIN/DEXTROSE PMX 400 MG in DEXTROSE/WATER 1 200ML.BAG IVPB STA (20:58)
[2020-11-15] MEDS ORDERED: NALOXONE 0.4 MG/ML 1 ML VIAL IV PRN (21:27)
[2020-11-15] MEDS ORDERED: ONDANSETRON 4 MG/2 ML VIAL IVP PRN (21:27)
[2020-11-15] MEDS: SODIUM CHLORIDE 0.9% 1,000 ML IV SCH (21:46)
[2020-11-16] MEDS: HYDROmorphone 1 MG/ML 1 ML SYRINGE IVP PRN ×6 (00:09→20:00)
[2020-11-16] MEDS: ACETAMINOPHEN TAB 325 MG TAB PO PRN ×3 (04:50→22:17)
[2020-11-16] MEDS ORDERED: SODIUM CHLORIDE 0.9% 500 ML 500 ML IV ONE (05:48)
[2020-11-16] MEDS ORDERED: HYDROmorphone 2 MG/ML 1 ML SYRINGE IVP STA (05:49)
[2020-11-16] MEDS ORDERED: CIPROFLOXACIN/DEXTROSE PMX 400 MG in DEXTROSE/WATER 1 200ML.BAG IVPB SCH (10:00)
[2020-11-16] MEDS ORDERED: DOCUSATE 100 MG CAP PO PRN (11:30)
[2020-11-16] MEDS: PANTOPRAZOLE 40 MG TABLET PO SCH (16:35)
[2020-11-16] MEDS: DULoxetine HCL 30 MG CAPSULE.DR PO SCH (16:35)
[2020-11-16] MEDS: diazePAM 5 MG TAB PO SCH ×2 (17:46)
[2020-11-16 20:09] VITALS: RESP 16
--- NOTE | 2020-11-16 22:51 | P.HPIM ---
History of Present Illness H&P Date: 11/16/20 Chief Complaint: Bilateral flank pain Patient is a 30-year-old female with a known history of GERD, history of urinary tract infection about 5 years ago, arthritis, anxiety/depression and occasional vapor use and daily marijuana use presents to ER with the complaints of bila teral flank pain and burning with urination. Patient states that she started having right flank pain which has been worsening and also next day patient was having surgery to fevers and chills. Right flank pain has been worsening and also developed left flank pain as well. Patient also developed urinary symptoms including frequency and dysuria. Patient does have previous history of pyelonephritis and urine culture was showing E. coli. Patient has been afebrile on admission. Otherwise she was tachycardic and hypotensive on admission. Laboratory test showed WBC 17.2 hemoglobin 12.6 Sodium 134 potassium 4.0 BUN 9 and creatinine 1.09 blood sugar is 102 urinalysis showed cloudy with 1+ protein and large leukocytes trace and greater than 182 WBCs Coronavirus PCR not detected. Review of Systems Constitutional: Patient denies any fever or chills . No generalized weakness or weight loss. Abdomen: Patient denied nausea vomiting and diarrhea and abdominal pain. Cardiovascular: Patient denies any chest pain or short of breath no palpitations. Respiratory: patient denied any cough or sputum production. No shortness of breath Neurologic: Patient denied any numbness or tingling headache. Musculoskeletal: Patient denies any complaints of joint swelling or deformity. Skin: Negative Psychiatric: Negative Endocrine: No heat or cold intolerance. No recent weight gain. Genitourinary: No dysuria or hematuria.Bilateral flank pain All other 14 point ROS negative except the above Past Medical History Past Medical History: GERD/Reflux Additional Past Medical History / Comment(s): arthritis L4 L5, hx kidney infection. states abd pain. History of Any Multi-Drug Resistant Organisms: None Reported Past Surgical History: No Surgical Hx Reported Additional Past Surgical History / Comment(s): wisdom teeth Past Anesthesia/Blood Transfusion Reactions: Motion Sickness Additional Past Anesthesia/Blood Transfusion Reaction / Comment(s): mother has difficulty waking up. Past Psychological History: Anxiety, Depression Additional Psychological History / Comment(s): . Smoking Status: Vaper Past Alcohol Use History: Occasional Additional Past Alcohol Use History / Comment(s): smokes 3-4 cigarettes/day Past Drug Use History: Marijuana Additional Drug Use History / Comment(s): current marijuana use - Past Family History Mother Family Medical History: No Reported History Additional Family Medical History / Comment(s): hypoglycemia. Medications and Allergies Home Medications Medication Instructions Recorded Confirmed Type DULoxetine HCL [Cymbalta] 90 mg PO DAILY 11/15/20 11/15/20 History Diazepam [Valium] 5 - 10 mg PO Q12H 11/15/20 11/15/20 History Omeprazole 20 mg PO DAILY 11/15/20 11/15/20 History Ondansetron HCl [Zofran] 4 mg PO Q6H PRN 11/15/20 11/15/20 History Allergies Allergy/AdvReac Type Severity Reaction Status Date / Time mani Allergy Severe LIPS SWELL Verified 11/16/20 01:18 cefaclor [From [facility]] Allergy Rash/Hives Verified 11/16/20 01:18 kiwi Allergy Swelling Verified 11/16/20 01:18 cats Allergy STUFFY Uncoded 11/15/20 21:22 NOSE, ITCHY WATERY EYES, ITCHY NOSE Physical Exam Vitals: Vital Signs Temp Pulse Pulse Resp BP BP Pulse Ox 11/16/20 10:22 16 11/16/20 08:01 115 H 94 L 11/16/20 07:36 99.3 F 109 H 15 109/69 95 11/16/20 07:08 118 H 96 11/16/20 07:02 118 H 95 11/16/20 06:30 121 H 11/16/20 05:28 112 H 11/16/20 04:50 98.4 F 120 H 16 110/71 100 11/16/20 01:55 98.5 F 101 H 16 106/72 100 11/16/20 00:50 99.0 F 99 18 109/72 98 11/16/20 00:49 99.0 F 99 18 109/72 98 11/16/20 00:29 127 H 11/16/20 00:05 115/75 11/15/20 23:15 98.9 F 95 18 98/67 98 11/15/20 20:41 99.6 F 102 H 18 103/66 95 11/15/20 18:42 101.9 F H 139 H 22 106/73 100 Intake and Output 11/15/20 11/16/20 11/16/20 22:59 06:59 14:59 Other: Voiding Method Toilet Toilet # Voids 1 Weight 92.215 kg 92.215 kg PHYSICAL EXAMINATION: Patient is lying in the bed comfortably, no acute distress, awake alert and oriented.. HEENT: Normocephalic. Neck is supple. Pupils reactive. Nostrils clear. Oral cavity is moist. Ears reveal no drainage. Neck reveals no JVD, carotid bruits, or thyromegaly. CHEST EXAMINATION: Trachea is central. Symmetrical expansion. Lung louis clear to auscultation and percussion. CARDIAC: Normal S1, S2 with no gallops. No murmurs ABDOMEN: Soft. Bowel sounds normal. No organomegaly. No abdominal bruits. Extremities: reveal no edema. No clubbing or cyanosis Neurologically awake, alert, oriented x3 with well-coordinated movements. No focal deficits noted Skin: No rash or skin lesions. Psychiatric: Coperative. Nonsuicidal Musculoskeletal: No joint swelling or deformity. Normal range of motion. Results CBC & Chem 7: 11/15/20 18:58 11/15/20 18:58 Labs: Abnormal Lab Results - Last 24 Hours (Table) 11/15/20 11/15/20 11/15/20 Range/Units 18:58 18:58 18:58 WBC 17.2 H (3.8-10.6) k/uL Neutrophils # 13.5 H (1.3-7.7) k/uL Monocytes # 1.3 H (0-1.0) k/uL Sodium 134 L (137-145) mmol/L Creatinine 1.09 H (0.52-1.04) mg/dL Glucose 102 H (74-99) mg/dL Urine Appearance Cloudy H (Clear) Urine Protein 1+ H (Negative) Urine Blood Small H (Negative) Ur Leukocyte Esterase Large H (Negative) Urine RBC 8 H (0-5) /hpf Urine WBC >182 H (0-5) /hpf Urine WBC Clumps Many H (None) /hpf Urine Bacteria Few H (None) /hpf Urine Mucus Few H (None) /hpf Thrombosis Risk Factor Assmnt - DVT/VTE Prophylaxis DVT/VTE Prophylaxis: Mechanical Prophylaxis ordered - Choose All That Apply Any of the Below Risk Factors Present?: No Assessment and Plan Assessment: Acute pyelonephritis Sepsis secondary to acute pyelonephritis. Follow-up urine culture report. Previous history of pyelonephritis GERD Anxiety/depression Marijuana use and also occasional vapor use Ongoing nicotine addiction and currently everyday smoker DVT prophylaxis with early ambulation SCDs. Plan: Patient was started on ciprofloxacin IV due to documented allergy to cephalosporins. Patient states that she was told by her mother that she developed hives with cephalosporin when she was an infant. But patient was previously on cephalosporins without any allergic reaction. And tolerated it well. We will switch to ceftriaxone and follow-up urine culture report. Replace Select lites. Continue to monitor CBC and BMP tomorrow. Ultrasound of the kidneys was ordered to look for hydronephrosis. Further recommendations based on clinical course. Time with Patient: Greater than 30
[2020-11-17] MEDS ORDERED: SODIUM CHLORIDE 0.9% 1,000 ML BAG ONE (03:14)
[2020-11-17 06:10] LABS: Basophils % (A) 0 %; Eosinophils # (A) 0.4 k/uL (0-0.7); Eosinophils % (A) 5 %; HCT 34.4 % (34.0-46.0); HGB 11.5 gm/dL (11.4-16.0); Lymphocytes # (A) 1.3 k/uL (1.0-4.8); Lymphocytes % (A) 15 %; MCHC 33.4 g/dL (31.0-37.0); MCV 89.8 fL (80.0-100.0); Monocytes # (A) 0.6 k/uL (0-1.0); Monocytes % (A) 8 %; Neutrophils # (A) 5.8 k/uL (1.3-7.7); Neutrophils % (A) 70 %; Platelet Count 249 k/uL (150-450); RBC 3.83 m/uL (3.80-5.40); RDW 13.5 % (11.5-15.5); WBC 8.3 k/uL (3.8-10.6)
[2020-11-17 06:25] LABS: African American GFR (CKD) >90 (>60 ml/min/1.73 sqM); Anion Gap 7 mmol/L; Blood Urea Nitrogen 6 mg/dL (7-17); Calcium 8.8 mg/dL (8.4-10.2); Carbon Dioxide 22 mmol/L (22-30); Chloride 108 mmol/L (98-107); Glucose 107 mg/dL (74-99); Non-African American GFR(CKD) 89 (>60 ml/min/1.73 sqM); Potassium 4.4 mmol/L (3.5-5.1); Sodium 137 mmol/L (137-145)
[2020-11-17] MEDS: PANTOPRAZOLE 40 MG TABLET PO SCH (06:33)
[2020-11-17] MEDS: HYDROmorphone 1 MG/ML 1 ML SYRINGE IVP PRN ×6 (06:34→23:20)
[2020-11-17] MEDS: SODIUM CHLORIDE 0.9% 1,000 ML IV SCH ×4 (07:26→23:00)
--- NOTE | 2020-11-17 07:59 | US ---
EXAMINATION TYPE: US kidneys/renal and bladder DATE OF EXAM: 11/17/2020 COMPARISON: US, CT CLINICAL HISTORY: Acute pyelonephritis. pyelonephritis per order EXAM MEASUREMENTS: Right Kidney: 11.3 x 5.6 x 4.6 cm Left Kidney: 10.1 x 5.2 x 6.8 cm Right Kidney: No hydronephrosis or masses seen Left Kidney: Possible column of Doyle seen. Images taken prone. Bladder: wall measures 0.35. Bilateral Jets seen: yes There is no evidence for hydronephrosis at this point in time. No nephrolithiasis is seen. No ngozi s are identified. The urinary bladder is anechoic. Bilateral ureteral jets are seen. IMPRESSION: No distinct abnormality appreciated.
[2020-11-17] MEDS: diazePAM 5 MG TAB PO SCH ×2 (08:00→21:15)
[2020-11-17] MEDS: DULoxetine HCL 30 MG CAPSULE.DR PO SCH (08:00)
[2020-11-17] MEDS: DOCUSATE 100 MG CAP PO SCH ×2 (13:31→21:15)
[2020-11-17] MEDS: PHENAZOPYRIDINE 100 MG TAB PO SCH ×2 (13:32→21:15)
[2020-11-17] MEDS ORDERED: PHENAZOPYRIDINE 100 MG TAB PO SCH (16:00)
[2020-11-17] MEDS: ACETAMINOPHEN TAB 325 MG TAB PO PRN (21:15)
--- NOTE | 2020-11-17 22:04 | P.PN ---
Subjective Progress Note Date: 11/17/20 Principal diagnosis: Acute polynephritis Patient is a 30-year-old female with a known history of GERD, history of urinary tract infection about 5 years ago, arthritis, anxiety/depression and occasional vapor use and daily marijuana use presents to ER with the complaints of bilat eral flank pain and burning with urination. Patient states that she started having right flank pain which has been worsening and also next day patient was having surgery to fevers and chills. Right flank pain has been worsening and also developed left flank pain as well. Patient also developed urinary symptoms including frequency and dysuria. Patient does have previous history of pyelonephritis and urine culture was showing E. coli. Patient has been afebrile on admission. Otherwise she was tachycardic and hypotensive on admission. Laboratory test showed WBC 17.2 hemoglobin 12.6 Sodium 134 potassium 4.0 BUN 9 and creatinine 1.09 blood sugar is 102 urinalysis showed cloudy with 1+ protein and large leukocytes trace and greater than 182 WBCs Coronavirus PCR not detected. 11/17/2020 Patient is currently lying in the bed comfortably. Right flank pain is better. No complaints of fever or chills. Leukocytosis is improving with WBC count 8.3 today. Urine culture showed gram-negative bacilli. Ultrasound of the abdomen bladder showed no hydronephrosis. No nephrolithiasis noted. Patient is tolerating ceftriaxone. No allergic reactions. Denied any nausea or vomiting or abdominal pain. Patient is still complaining of burning sensation with urination. Patient will be started on. 100 g 3 times daily and follow-up closely. Current medications reviewed. Objective - Vital Signs Vital signs: Vital Signs Temp 98.3 F 11/17/20 20:48 Pulse 99 11/17/20 20:48 Resp 16 11/17/20 20:48 BP 100/68 11/17/20 20:48 Pulse Ox 99 11/17/20 20:48 Intake & Output 11/17/20 11/17/20 11/18/20 06:59 18:59 06:59 Intake Total 400 2050 Balance 400 2050 Intake: Intake, IV Titration 1050 Amount Sodium Chloride 0.9% 1, 1000 000 ml @ 100 mls/hr IV . Q10H [facility] Rx#:[id number] cefTRIAXone 1 gm In 50 Sodium Chloride 0.9% 50 ml @ 100 mls/hr IVPB Q24HR [facility] Rx#:[id number] Oral 400 1000 Other: Voiding Method Toilet Toilet # Voids 4 1 # Bowel Movements 1 - Exam PHYSICAL EXAMINATION: Patient is lying in the bed comfortably, no acute distress, awake alert and oriented.. HEENT: Normocephalic. Neck is supple. Pupils reactive. Nostrils clear. Oral cavity is moist. Ears reveal no drainage. Neck reveals no JVD, carotid bruits, or thyromegaly. CHEST EXAMINATION: Trachea is central. Symmetrical expansion. Lung louis clear to auscultation and percussion. CARDIAC: Normal S1, S2 with no gallops. No murmurs ABDOMEN: Soft. Bowel sounds normal. No organomegaly. No abdominal bruits. Patient does right flank tenderness. Extremities: reveal no edema. No clubbing or cyanosis Neurologically awake, alert, oriented x3 with well-coordinated movements. No focal deficits noted Skin: No rash or skin lesions. Psychiatric: Coperative. Nonsuicidal Musculoskeletal: No joint swelling or deformity. Normal range of motion. - Labs CBC & Chem 7: 11/17/20 05:52 11/17/20 05:52 Labs: Abnormal Lab Results - Last 24 Hours (Table) 11/17/20 Range/Units 05:52 Chloride 108 H (98-107) mmol/L BUN 6 L (7-17) mg/dL Glucose 107 H (74-99) mg/dL Microbiology - Last 24 Hours (Table) 11/15/20 18:58 Blood Culture - Preliminary Blood No Growth after 48 hours 11/15/20 18:58 Urine Culture - Preliminary Urine,Clean Catch Gram Neg Bacilli 11/15/20 21:20 Blood Culture - Preliminary Blood No Growth after 24 hours 11/15/20 21:25 Blood Culture - Preliminary Blood No Growth after 24 hours Assessment and Plan Assessment: Acute pyelonephritis Sepsis secondary to acute pyelonephritis. Follow-up urine culture report. Previous history of pyelonephritis GERD Anxiety/depression Marijuana use and also occasional vapor use Ongoing nicotine addiction and currently everyday smoker DVT prophylaxis with early ambulation SCDs. Plan: Continue with IV hydration. Symptomatic management. Patient is tolerating ceftriaxone. Follow final urine culture report. Ultrasound of the kidneys showed no evidence of hydronephrosis. Further recommendations based on clinical course. Time with Patient: Greater than 30
[2020-11-17] MEDS ORDERED: HYDROmorphone 1 MG/ML 1 ML SYRINGE ONE (23:08)
[2020-11-18] MEDS: HYDROmorphone 1 MG/ML 1 ML SYRINGE IVP PRN ×2 (02:18→05:27)
[2020-11-18] MEDS: PANTOPRAZOLE 40 MG TABLET PO SCH (08:42)
[2020-11-18] MEDS: PHENAZOPYRIDINE 100 MG TAB PO SCH (08:42)
[2020-11-18] MEDS: diazePAM 5 MG TAB PO SCH (08:42)
[2020-11-18] MEDS: DOCUSATE 100 MG CAP PO SCH (08:42)
[2020-11-18] MEDS: DULoxetine HCL 30 MG CAPSULE.DR PO SCH (08:43)
[2020-11-18] MEDS: SODIUM CHLORIDE 0.9% 1,000 ML IV SCH (08:45)
[2020-11-18 08:58] VITALS: BP 101/67; PULSE 90; TEMP 97.7
[2020-11-18] MEDS ORDERED: HYDROcodone/APAP 5-325MG 1 EACH TAB PO PRN (09:43)
[2020-11-18] MEDS ORDERED: KETOROLAC 15 MG/ML 1 ML VIAL IVP STA (13:25)
[2020-11-18] MEDS ORDERED: SODIUM CHLORIDE 0.9% 1,000 ML BAG ONE (14:09)
[2020-11-18] MEDS ORDERED: HYDROmorphone 1 MG/ML 1 ML SYRINGE ONE (14:09)
== END 2020-11-18 14:10 | disposition home or self-care (01) | DRG 872 ==
LOC: EC 17:01 → 6NMEDSUR 21:27 → 6PED 11-16 00:14 → OBSVTOIN 11-17 07:32
PROVIDERS: ADMIT Internal Medicine; ATTEND Internal Medicine
DX: A41.9 Sepsis, unspecified organism (principal); N10 Acute pyelonephritis; Z87.440 Personal history of urinary (tract) infections; I95.9 Hypotension, unspecified; K21.9 Gastro-esophageal reflux disease without esophagitis; F17.210 Nicotine dependence, cigarettes, uncomplicated; F32.9 Major depressive disorder, single episode, unspecified; Z20.822 Contact with and (suspected) exposure to COVID-19; F41.9 Anxiety disorder, unspecified; Z88.1 Allergy status to other antibiotic agents; B96.89 Other specified bacterial agents as the cause of diseases classified elsewhere; F12.90 Cannabis use, unspecified, uncomplicated
CPT/HCPCS: 36415; 76770; 80048; 80053; 81001; 81025; 83605; 85025; 87040; 87077; 87086; 87186; 87635; 93005; 96361; 99284; 99285

== ENCOUNTER 2021-03-20 11:06 | Emergency (ER) | payer OTHER ==
[2021-03-20 11:13] VITALS: BP 113/77; PULSE 105; RESP 16
[2021-03-20 11:14] VITALS: TEMP 98.1
--- NOTE | 2021-03-20 11:25 | ED ---
General Adult HPI - General Chief complaint: Extremity Problem,Nontraumatic Stated complaint: hip pain Time Seen by Provider: 03/20/21 11:15 Source: patient Mode of arrival: ambulatory Limitations: no limitations - History of Present Illness Initial comments: Dictation was produced using [employer] dictation software. please excuse any grammatical, word or spelling errors. Chief Complaint: 31-year-old female with past medical history of arthritic back and hips presents emergency department for bilateral hip pain History of Present Illness: 31-year-old female she has history of arthritis to her back and bilateral hips. She states that she was sent here by PA from primary care physician's office for x-rays. Patient is history of arthritis to her back and bilateral hips. States that she's been walking more than usual the last several days. States that her right hip hurts at the right lateral hip area. It's worse with standing. She also has left hip pain gets worse with external and internal rotation. Denies any numbness or tingling or paresthesias to the lower extremities. The ROS documented in this emergency department record has been reviewed and confirmed by me. Those systems with pertinent positive or negative responses have been documented in the HPI. All other systems are other negative and/or noncontributory. PHYSICAL EXAM: General Impression: Alert and oriented x3, not in acute distress HEENT: Normocephalic atraumatic, extra-ocular movements intact, pupils equal and reactive to light bilaterally, mucous membranes moist. Cardiovascular: Heart regular rate and rhythm Chest: Able to complete full sentences, no retractions, no tachypnea Abdomen: abdomen soft, non-tender, non-distended, no organomegaly Musculoskeletal: Pulses present and equal in all extremities, no peripheral edema Motor: no focal deficits noted Bilateral hips: Tenderness to palpation over the greater trochanter. Negative s traight leg test, pain elicited to the left hip with external/internal rotation Neurological: CN II-XII grossly intact, no focal motor or sensory deficits noted Skin: Intact with no visualized rashes Psych: Normal affect and mood ED course: 31-year-old fell presents to the emergency department for bilateral hip pain. Vital Signs upon arrival are within acceptable limits. Urine is negative. Hip x-ray is unremarkable. Patient given IV analgesia. Patient discharged. - Related Data Home Medications Medication Instructions Recorded Confirmed DULoxetine HCL [Cymbalta] 90 mg PO DAILY 11/15/20 11/15/20 Diazepam [Valium] 5 - 10 mg PO Q12H 11/15/20 11/15/20 Omeprazole 20 mg PO DAILY 11/15/20 11/15/20 Ondansetron HCl [Zofran] 4 mg PO Q6H PRN 11/15/20 11/15/20 Previous Rx's Medication Instructions Recorded Ciprofloxacin HCl [Cipro] 500 mg PO Q12H 10 Days #20 tab 11/18/20 HYDROcodone/APAP 5-325MG [[place] 1 each PO Q6HR PRN 3 Days #12 tab 11/18/20 5-325] Phenazopyridine [Pyridium] 100 mg PO TID 3 Days #9 tab 11/18/20 HYDROcodone/APAP 5-325MG [[place] 1 tab PO Q6HR PRN 3 Days #12 tab 03/20/21 5-325] Allergies Allergy/AdvReac Type Severity Reaction Status Date / Time mani Allergy Severe LIPS SWELL Verified 03/20/21 11:11 cefaclor [From Ceclor] Allergy Rash/Hives Verified 03/20/21 11:11 kiwi Allergy Swelling Verified 03/20/21 11:11 cats Allergy STUFFY Uncoded 03/20/21 11:11 NOSE, ITCHY WATERY EYES, ITCHY NOSE Review of Systems ROS Statement: Those systems with pertinent positive or pertinent negative responses have been documented in the HPI. ROS Other: All systems not noted in ROS Statement are negative. Past Medical History Past Medical History: GERD/Reflux Additional Past Medical History / Comment(s): arthritis L4 L5, hx kidney infection. states abd pain. History of Any Multi-Drug Resistant Organisms: None Reported Past Surgical History: No Surgical Hx Reported Additional Past Surgical History / Comment(s): wisdom teeth Past Anesthesia/Blood Transfusion Reactions: Motion Sickness Additional Past Anesthesia/Blood Transfusion Reaction / Comment(s): mother has difficulty waking up. Past Psychological History: Anxiety, Depression Smoking Status: Vaper Past Alcohol Use History: Occasional Past Drug Use History: Marijuana - Past Family History Mother Family Medical History: No Reported History Additional Family Medical History / Comment(s): hypoglycemia. General Exam Limitations: no limitations Course Vital Signs 03/20/21 11:11 Temperature 98.1 F Pulse Rate 105 H Respiratory 16 Rate Blood Pressure 113/77 O2 Sat by Pulse 99 Oximetry Medical Decision Making - Lab Data Lab Results 03/20/21 Range/Units 11:46 Urine HCG, Qual Not Detected (Not Detectd) Disposition Clinical Impression: Hip strain Disposition: HOME SELF-CARE Condition: Fair Instructions (If sedation given, give patient instructions): Arthralgia (ED), Hip Pain (ED) Prescriptions: HYDROcodone/APAP 5-325MG [[place] 5-325] 1 tab PO Q6HR PRN 3 Days #12 tab PRN Reason: Severe Pain Is patient prescribed a controlled substance at d/c from ED?: Yes If prescribed controlled substance>3 days was MAPS reviewed?: Prescribed <3 Days Referrals: Michaela Freeman III, MD [Primary Care Provider] - 1-2 days
--- NOTE | 2021-03-20 13:01 | XR ---
EXAMINATION TYPE: XR Hip Bilateral Complete DATE OF EXAM: 03/20/2021 COMPARISON: 08/06/2017 HISTORY: Hip pain chronic TECHNIQUE: Two-view bilateral hips FINDINGS: Femoral heads articulate with the acetabulum. Joint spaces are preserved. Femoral head is p reserved. No destruction is evident. No acute fracture or dislocation is evident. No significant inte rval change from the comparison is evident. IMPRESSION: 1. Normal bilateral hips
[2021-03-20] MEDS ORDERED: HYDROmorphone 0.5 MG/0.5 ML SYRINGE IVP STA (13:03)
[2021-03-20] MEDS ORDERED: ONDANSETRON 4 MG/2 ML VIAL IVP STA (13:16)
[2021-03-20] MEDS ORDERED: HYDROmorphone 0.5 MG/0.5 ML SYRINGE IM STA (13:23)
[2021-03-20] MEDS ORDERED: ONDANSETRON 4 MG/2 ML VIAL IM STA (13:23)
== END 2021-03-20 13:32 | disposition home or self-care (01) ==
LOC: EC 11:06
DX: S76.019A Strain of muscle, fascia and tendon of unspecified hip, initial encounter (principal); K21.9 Gastro-esophageal reflux disease without esophagitis; F41.9 Anxiety disorder, unspecified; F32.9 Major depressive disorder, single episode, unspecified; F17.290 Nicotine dependence, other tobacco product, uncomplicated; F12.90 Cannabis use, unspecified, uncomplicated; Z88.1 Allergy status to other antibiotic agents; X58.XXXA Exposure to other specified factors, initial encounter
CPT/HCPCS: 99284; 96372 ×2; 81025; 73521; J2405; J1170

== ENCOUNTER → 2021-03-29 | Outpatient (CLI) | payer OTHER ==
--- NOTE | 2021-03-29 16:00 | XR ---
EXAMINATION TYPE: XR lumbar spine 2 or 3V DATE OF EXAM: 03/29/2021 COMPARISON: 08/06/2017 HISTORY: Low back pain TECHNIQUE: 3 view lumbar spine FINDINGS: There are 5 lumbar-type vertebral bodies. Pedicles are intact. There is spina bifida occult a at S1. Posterior disc space narrowing is present L5-S1 and possibly L3-4. Remaining disc heights ar e preserved. Vertebral body heights are preserved. Alignment is normal. [place] exam is stable from [facility]. IMPRESSION: 1. No acute osseous abnormality. 2. Mild degenerative disc changes discussed above
== END | disposition home or self-care (01) ==
LOC: RADXRMAIN 15:33
PROVIDERS: ATTEND Family Medicine
DX: M54.5 Low back pain (principal); M51.36 Other intervertebral disc degeneration, lumbar region
CPT/HCPCS: 72100

== ENCOUNTER → 2021-06-21 | Outpatient (CLI) | payer OTHER ==
--- NOTE | 2021-07-03 12:50 | EM ---
EVENT MONITOR Patient was monitored between June 21 and June 26, 2021. The rhythm strip revealed sinus mechanism with normal conduction. No atrial fibrillation was noted. No pauses were noted. No ventricular ectopic activity was noted. MMODL / IJN: [id number] /
== END | disposition home or self-care (01) ==
LOC: RADECHMAIN 11:58
PROVIDERS: ATTEND Family Medicine
DX: R00.0 Tachycardia, unspecified (principal)
CPT/HCPCS: 93270

== ENCOUNTER → 2021-06-28 | Outpatient (CLI) | payer OTHER ==
--- NOTE | 2021-06-28 10:25 | MR ---
EXAMINATION TYPE: MR lumbar spine wo con DATE OF EXAM: 06/28/2021 COMPARISON: NONE HISTORY: Low back pain that goes down left leg, 6 months TECHNIQUE: T1 and T2 axial and sagittal images of the lumbar spine are submitted. FINDINGS: There is no abnormal signal seen within the visualized spinal cord or paraspinal soft tissu es. At L1-2 there is no disc herniation or canal stenosis. No foraminal encroachment At L2-3 there is no disc herniation or canal stenosis. No hemorrhage. At L3-4 there is no disc herniation or canal stenosis no foraminal encroachment At L4-5 there is no disc herniation or canal stenosis. No foraminal encroachment. Mild hypertrophy of the facets. Very mild central disc bulging. At L5-S1 there is no disc herniation or canal stenosis. No foraminal encroachment. There is mild hype rtrophic change of the facets . IMPRESSION: 1. Mild central disc bulging L4-L5 with no discrete herniation or canal stenosis.
== END | disposition home or self-care (01) ==
LOC: RADMRIMAIN 09:11
PROVIDERS: ATTEND Family Medicine
DX: M51.26 Other intervertebral disc displacement, lumbar region (principal)
CPT/HCPCS: 72148

== ENCOUNTER 2023-08-02 10:01 | Inpatient (IN) | payer BC, OTHER ==
[2023-08-02] MEDS ORDERED: miSOPROStoL 200 MCG TAB PO PRN (10:26)
[2023-08-02] MEDS ORDERED: OXYTOCIN 10 UNIT/ML 1 ML VIAL IM PRN (10:26)
[2023-08-02] MEDS ORDERED: TERBUTALINE 1 MG/ML VIAL SQ PRN (10:26)
[2023-08-02] MEDS ORDERED: TRANEXAMIC 1,000 MG/100ML-NACL 1,000 MG in EMPTY BAG 1 BAG IV PRN (10:26)
[2023-08-02] MEDS ORDERED: METHYLERGONOVINE 0.2 MG/ML 1 ML AMP IM PRN (10:26)
[2023-08-02] MEDS ORDERED: LIDOCAINE 0.5% (PF) 5 MG/ML (50 ML SDV) SQ PRN (10:26)
[2023-08-02] MEDS ORDERED: CARBOPROST TROMETHAMINE 250 MCG/ML 1 ML AMP IM PRN (10:26)
[2023-08-02] MEDS ORDERED: OXYTOCIN 30 UNITS/500 ML NS 30 UNIT in SALINE 1 500ML.BAG IV SCH ×2 (10:30→20:30)
[2023-08-02] MEDS: LACTATED RINGERS 1,000 ML IV SCH ×3 (10:51→12:55)
[2023-08-02 11:10] LABS: Appearance,Urine Clear (Clear); Color,Urine Yellow; Glucose,Urine (UA) Negative (Negative); Specific Gravity,Urine 1.015 (1.001-1.035)
[2023-08-02 11:11] LABS: Bilirubin Confirmation, Urine Negative (Negative); Bilirubin,Urine Negative (Negative); Blood,Urine Negative (Negative); Ketones,Urine Negative (Negative); Leukocyte Esterase,Urine Trace (Negative); Nitrite,Urine Negative (Negative); Protein,Urine Trace (Negative); Urobilinogen,Urine <2.0 mg/dL (<2.0)
[2023-08-02 11:14] LABS: Bacteria,Urine Occasional /hpf; Mucus,Urine Few /hpf; RBC,Urine 7 /hpf (0-5); Squamous Epithelial Cell,Urine <1 /hpf (0-4); WBC,Urine 47 /hpf (0-5)
[2023-08-02] MEDS ORDERED: CLINDAMYCIN 900 MG in DEXTROSE 5% IN WATER 50 ML IVPB STA ×2 (11:14)
[2023-08-02 11:20] VITALS: RESP 16
[2023-08-02 11:25] LABS: Basophils # (A) 0.1 k/uL (0-0.2); Basophils % (A) 1 %; Eosinophils # (A) 0.2 k/uL (0-0.7); Eosinophils % (A) 2 %; HCT 36.2 % (34.0-46.0); HGB 11.5 gm/dL (11.4-16.0); Hypochromasia Moderate; Lymphocytes # (A) 2.1 k/uL (1.0-4.8); Lymphocytes % (A) 19 %; MCH 25.4 pg (25.0-35.0); MCHC 31.7 g/dL (31.0-37.0); MCV 80.1 fL (80.0-100.0); Mean Platelet Volume 8.3; Monocytes # (A) 0.5 k/uL (0-1.0); Monocytes % (A) 4 %; Neutrophils % (A) 72 %; Platelet Count 419 k/uL (150-450); Poikilocytosis Slight; RBC 4.52 m/uL (3.80-5.40); RDW 14.5 % (11.5-15.5); WBC 11.2 k/uL (3.8-10.6)
--- NOTE | 2023-08-02 11:26 | P.HPOB ---
History of Present Illness H&P Date: 08/02/23 Chief Complaint: 37+ weeks, early active labor, no care The patient is a 33-year-old 1 para 0 admitted at 37-5/7 weeks by dating parameters obtained elsewhere by ultrasound at [facility] and through a another doctor's office in the [place] where she failed to follow-up for any further care. She reports her has been uncomplicated but has had no actual care. On labor and delivery, all signs reassuring though there is minimal reactivity to the heart rate tracing. There are no decelerations. Group B strep status is unknown. Spontaneous rupture of membranes has been documented. This apparently happened sometime is morning. Obstetrical history: 1 para 0 with current statistics listed in history of present illness. labs are drawn and pending. Gynecologic history: Unremarkable with no reported history of STDs. Review of Systems Review of systems is confined to history of present illness. Past Medical History Past Medical History: GERD/Reflux Additional Past Medical History / Comment(s): back pain, DJD History of Any Multi-Drug Resistant Organisms: None Reported Past Surgical History: No Surgical Hx Reported Additional Past Surgical History / Comment(s): wisdom teeth Past Anesthesia/Blood Transfusion Reactions: No Reported Reaction Additional Past Anesthesia/Blood Transfusion Reaction / Comment(s): mother has difficulty waking up. Past Psychological History: Anxiety, Depression, Panic Disorder Smoking Status: Never smoker Past Alcohol Use History: None Reported, Occasional Past Drug Use History: Marijuana Additional Drug Use History / Comment(s): occasional marijuana use - Past Family History Mother Family Medical History: Cancer Additional Family Medical History / Comment(s): hypoglycemia. of breast cancer 2018 Medications and Allergies Home Medications Medication Instructions Recorded Confirmed Type DULoxetine HCL [Cymbalta] 90 mg PO DAILY 11/15/20 11/15/20 History Omeprazole 20 mg PO DAILY 11/15/20 11/15/20 History diazePAM [Valium] 5 - 10 mg PO Q12H 11/15/20 11/15/20 History ondansetron HCL [Zofran] 4 mg PO Q6H PRN 11/15/20 11/15/20 History Ciprofloxacin HCl [Cipro] 500 mg PO Q12H 10 Days #20 tab 11/18/20 Rx HYDROcodone/APAP 5-325MG [[place] 1 each PO Q6HR PRN 3 Days #12 tab 11/18/20 Rx 5-325] Phenazopyridine [Pyridium] 100 mg PO TID 3 Days #9 tab 11/18/20 Rx HYDROcodone/APAP 5-325MG [[place] 1 tab PO Q6HR PRN 3 Days #12 tab 03/20/21 Rx 5-325] Ciprofloxacin HCl [Cipro] 500 mg PO Q12HR #14 tab 04/18/22 Rx Ondansetron Odt [Zofran Odt] 4 mg PO Q8HR PRN #10 tab 04/18/22 Rx Allergies Allergy/AdvReac Type Severity Reaction Status Date / Time mani Allergy Severe LIPS SWELL Verified 09/26/22 12:40 cefaclor [From Ceclor] Allergy Rash/Hives Verified 09/26/22 12:40 kiwi Allergy Swelling Verified 09/26/22 12:40 c-clor Allergy Unknown Uncoded 09/26/22 12:40 cats Allergy STUFFY Uncoded 09/26/22 12:40 NOSE, ITCHY WATERY EYES, ITCHY NOSE Exam Vital Signs Temp Pulse Resp BP Pulse Ox 08/02/23 10:55 96.3 F L 75 16 115/74 100 Intake and Output 08/01/23 08/02/23 08/02/23 22:59 06:59 14:59 Other: Weight 83.915 kg In general, this is a well-developed, well-nourished white female in some discomfort as she is in early active labor. Her heart has a regular rhythm and rate without murmur. Her lungs are clear to auscultation bilaterally in all [place]. Her abdomen is gravid, nondistended, has normal active bowel sounds, is soft, nontender, and without any palpable masses aside from the uterine fundus. Her extremities are without any cyanosis, clubbing, or significant edema and are nontender to palpation bilaterally. Digital cervical examination demonstrates her cervix to be 3+ centimeters dilated, 90% effaced, the vertex in presentation at -1 station. Spontaneous rupture of membranes has been documented. Results Abnormal Lab Results - Last 24 Hours (Table) 08/02/23 Range/Units 10:45 Urine Protein Trace H (Negative) Ur Leukocyte Esterase Trace H (Negative) Urine RBC 7 H (0-5) /hpf Urine WBC 47 H (0-5) /hpf Urine Bacteria Occasional H (None) /hpf Urine Mucus Few H (None) /hpf Assessment and Plan (1) Active labor at term Current Visit: Yes Status: Acute Code(s): HVP6136 - SNOMED Code(s): 59008839 (2) No care in current Current Visit: Yes Status: Acute Code(s): O09.30 - SUPRVSN OF PREG W INSUFFICIENT ANTENAT CARE, UNSP TRIMESTER SNOMED Code(s): 061918230 Plan: Patient is admitted for active management of labor. She will have close maternal and surveillance and expectant management will be practiced. She is a good candidate for and has requested epidural analgesia.
[2023-08-02 11:34] LABS: Amphetamine Screen,Urine Not Detected (NotDetected); Barbiturate Screen,Urine Not Detected (NotDetected); Benzodiazepines Screen,Urine Not Detected (NotDetected); Cocaine Screen,Urine Detected (NotDetected); Methadone Screen, Urine Not Detected (NotDetected); Opiate Screen,Urine Not Detected (NotDetected); Oxycodone Screen, Urine Not Detected (NotDetected); Phencyclidine Screen,Urine Not Detected (NotDetected); Tricyclic Antidepressant,Urine Not Detected (NotDetected); Urn Cannabinoid Scrn Not Detected (NotDetected)
[2023-08-02] MEDS ORDERED: fentaNYL (PF) 50 MCG/ML 5 ML AMP ONE (11:53)
[2023-08-02] MEDS ORDERED: ROPIVACAINE 5 MG/ML 30 ML VIAL ONE (11:53)
[2023-08-02] MEDS ORDERED: SODIUM CHLORIDE 0.9% 250 ML BAG ONE (11:53)
[2023-08-02] MEDS ORDERED: CITRIC ACID-SODIUM CITRATE 15 ML CUP PO ONE (12:51)
[2023-08-02] MEDS ORDERED: CLINDAMYCIN 900 MG in DEXTROSE 5% IN WATER 50 ML IVPB SCH ×2 (19:30)
[2023-08-02] MEDS ORDERED: HYDROcodone/APAP 7.5-325MG 1 EACH TAB PO PRN (20:16)
[2023-08-02] MEDS ORDERED: HYDROcodone/APAP 5-325MG 1 EACH TAB PO PRN (20:16)
[2023-08-02] MEDS ORDERED: LANOLIN CREAM 5 GM TUBE TOPICAL PRN (20:16)
[2023-08-02] MEDS ORDERED: BENZOCAINE/MENTHOL SPRAY 1 GM/SPRAY AEROSOL TOPICAL PRN ×2 (20:16→20:32)
[2023-08-02] MEDS ORDERED: HYDROCORTISONE 2.5% RECTAL CREAM 30 GM TUBE RECTAL PRN (20:16)
[2023-08-02] MEDS ORDERED: diphenhydrAMINE 50 MG CAP PO PRN (20:16)
[2023-08-02] MEDS ORDERED: diphenhydrAMINE 25 MG CAP PO PRN (20:16)
[2023-08-02] MEDS ORDERED: ZOLPIDEM 5 MG TAB PO PRN (20:16)
[2023-08-02] MEDS ORDERED: diphenhydrAMINE 50 MG/ML 1 ML VIAL IVP PRN ×2 (20:16)
--- NOTE | 2023-08-02 20:21 | P.PROBDLV ---
Vaginal Delivery Note - . Vaginal Delivery Note: The patient is a 33-year-old 1 para 0 admitted at 37-5/7 weeks as determined by due dates from early ultrasound at [facility] and another doctor's office. She is admitted in early active labor with documented spontaneous rupture of membranes. Heart tones were category 2 though there were no decelerations. Generally there was minimal variability with minimal accelerations present. Her was reportedly uncomplicated but she had no care aside from her ultrasounds. She had an epidural catheter placed for analgesia and then made steady progress through the active phase of labor and ultimately progressed to complete and 0 station. She pushed over the course of 1 hour to a normal spontaneous vaginal delivery of a viable 6 lbs. 3 oz. baby boy with Apgars of 9 at 1 minute and 9 at 5 minutes delivered in the right occiput anterior position. The placenta was delivered spontaneously, intact, and grossly normal with a grossly normal cord inserted just off of center on the placental disc. A second-degree midline episiotomy had been cut for delivery as she had a significantly long perineal body and the episiotomy allowed for delivery within the next 2 pushes. The episiotomy was repaired in standard fashion using 3-0 chromic catgut without difficulty. Estimated blood loss for the case was approximately 300 mL. There were no complications. All sponge, instrument, and needle counts were correct. Both mother and infant are resting comfortably in recovery.
[2023-08-02] MEDS ORDERED: PANTOPRAZOLE SODIUM 40 MG GRANULE PKT PO STA (20:24)
[2023-08-02] MEDS: CALCIUM CARBONATE 500 MG CHEWABLE PO PRN (20:52)
[2023-08-02] MEDS: IBUPROFEN 600 MG TAB PO PRN (21:16)
[2023-08-02] MEDS ORDERED: FAMOTIDINE 20 MG/2 ML VIAL IV ONE (22:00)
[2023-08-02] MEDS ORDERED: Rhogam IMMUNE GLOBULIN 1,500 UNIT/1 ML IM ONE (22:54)
[2023-08-02] MEDS ORDERED: INFLUENZA VACC (6 MOS-64 YRS) 60 MCG/0.5 ML SYRINGE IM ONE (23:00)
[2023-08-02] MEDS ORDERED: DIPH,PERTUS(ACELL)TETVAC-LF 0.5 ML VIAL IM ONE (23:01)
[2023-08-02 23:37] LABS: Hepatitis B Surface Antigen Nonreactive
[2023-08-03] MEDS: ACETAMINOPHEN TAB 325 MG TAB PO PRN ×3 (00:07→21:05)
[2023-08-03 07:08] LABS: Basophils # (A) 0.1 k/uL (0-0.2); Basophils % (A) 0 %; Eosinophils # (A) 0.1 k/uL (0-0.7); Eosinophils % (A) 1 %; HCT 31.5 % (34.0-46.0); HGB 10.4 gm/dL (11.4-16.0); Hypochromasia Slight; Lymphocytes # (A) 2.3 k/uL (1.0-4.8); Lymphocytes % (A) 14 %; MCH 25.9 pg (25.0-35.0); MCHC 33.1 g/dL (31.0-37.0); MCV 78.1 fL (80.0-100.0); Mean Platelet Volume 7.9; Monocytes # (A) 0.7 k/uL (0-1.0); Monocytes % (A) 4 %; Neutrophils # (A) 12.5 k/uL (1.3-7.7); Neutrophils % (A) 79 %; Platelet Count 363 k/uL (150-450); RBC 4.03 m/uL (3.80-5.40); RDW 14.6 % (11.5-15.5); WBC 15.8 k/uL (3.8-10.6)
[2023-08-03] MEDS: IBUPROFEN 600 MG TAB PO PRN ×3 (08:11→23:50)
[2023-08-03] MEDS: SENNOSIDES-DOCUSATE SODIUM 1 EACH TAB PO SCH ×2 (08:11→21:11)
--- NOTE | 2023-08-03 11:20 | P.PNOBGVD ---
Subjective - Subjective Patient reports: Reports appetite normal, Reports voiding normally, Reports pain well controlled, Reports ambulating normally : doing well, in NICU (Being monitored for withdrawal scoring.) Objective - Latest Vital Signs Latest vital signs: Vital Signs Temp Pulse Resp BP Pulse Ox 08/03/23 08:00 97.7 F 86 16 113/78 08/03/23 03:51 97.7 F 84 16 113/76 98 08/03/23 00:00 97.7 F 82 16 125/86 99 08/02/23 22:18 90 16 117/81 08/02/23 21:48 102 H 16 110/84 08/02/23 21:18 96 16 118/82 08/02/23 21:03 103 H 16 119/80 08/02/23 20:48 96 16 123/72 08/02/23 20:33 97.9 F 96 16 122/73 08/02/23 20:18 100 16 122/64 08/02/23 15:36 98.6 F 93 16 118/83 Intake and Output 08/02/23 08/03/23 08/03/23 22:59 06:59 14:59 Intake Total 1100 1700 Output Total 162 Balance 938 1700 Intake: IV 1400 Oral 1100 300 Output: Output, Quantitative 162 Blood Loss Other: # Voids 1 1 - Exam Extremities: Present: normal Abdomen: Present: normal appearance, soft Uterus: Present: normal, firm (Uterine fundus is tonic and nontender just below the umbilicus.) - Labs Labs: Abnormal Lab Results - Last 24 Hours (Table) 08/02/23 08/02/23 08/02/23 Range/Units 10:40 10:40 10:45 WBC 11.2 H (3.8-10.6) k/uL Hgb (11.4-16.0) gm/dL Hct (34.0-46.0) % MCV (80.0-100.0) fL Neutrophils # 8.0 H (1.3-7.7) k/uL Urine Cocaine Screen Detected H (NotDetected) Rubella IgG Antibody 477.00 H (0.00-9.00) IU/mL 08/03/23 Range/Units 06:34 WBC 15.8 H (3.8-10.6) k/uL Hgb 10.4 L (11.4-16.0) gm/dL Hct 31.5 L (34.0-46.0) % MCV 78.1 L (80.0-100.0) fL Neutrophils # 12.5 H (1.3-7.7) k/uL Urine Cocaine Screen (NotDetected) Rubella IgG Antibody (0.00-9.00) IU/mL Assessment and Plan (1) Active labor at term Current Visit: Yes Status: Acute Code(s): YFG6153 - SNOMED Code(s): 78211701 (2) No care in current Current Visit: Yes Status: Acute Code(s): O09.30 - SUPRVSN OF PREG W INSUFFICIENT ANTENAT CARE, UNSP TRIMESTER SNOMED Code(s): 911894385 (3) Normal spontaneous vaginal delivery Current Visit: Yes Status: Acute Code(s): O80 - ENCOUNTER FOR FULL-TERM UNCOMPLICATED DELIVERY SNOMED Code(s): 60477111 Plan: Continue routine care. I would anticipate discharge home tomorrow pending no complications.
[2023-08-03] MEDS: CALCIUM CARBONATE 500 MG CHEWABLE PO PRN (12:11)
[2023-08-03] MEDS: SIMETHICONE 80 MG CHEWABLE PO PRN ×3 (18:02→23:50)
[2023-08-04] MEDS: ACETAMINOPHEN TAB 325 MG TAB PO PRN (04:39)
[2023-08-04] MEDS: SIMETHICONE 80 MG CHEWABLE PO PRN (08:07)
[2023-08-04 08:34] VITALS: BP 119/76; PULSE 90; TEMP 97.4
[2023-08-04] MEDS: SENNOSIDES-DOCUSATE SODIUM 1 EACH TAB PO SCH (08:41)
--- NOTE | 2023-08-04 09:07 | P.DS ---
Providers Date of admission: 08/02/23 10:13 Expected date of discharge: 08/04/23 Attending physician: Rod Travis Primary care physician: Stated None - Discharge Diagnosis(es) (1) Active labor at term Current Visit: Yes Status: Acute (2) No care in current Current Visit: Yes Status: Acute (3) Normal spontaneous vaginal delivery Current Visit: Yes Status: Acute Hospital Course: Patient is a 33-year-old to 1 para 0 admitted at 37-5/7 weeks by dating parameters obtained elsewhere. She presents to labor and delivery with spontaneous rupture of membranes in early active labor with all signs reas suring. Her has reportedly been uncomplicated but she has had no care throughout the entire . On labor and delivery, all signs are reassuring though her heart tones were category 2 with no decelerations but no accelerations. She had an epidural catheter placed for analgesia and progressed throughout labor to complete and then pushed to a normal spontaneous vaginal delivery of a viable 6 lbs. 3 oz. baby boy with Apgars of 9 at 1 minute and 9 at 5 minutes. Her course was unremarkable with vital signs or any stable and her temperature was afebrile throughout. She was deemed stable for discharge on day #2 was discharged home to follow-up in the office in 6 weeks' time routinely. Discharge instructions included calling for any significantly increased bleeding or foul-smelling lochia, significantly increased fever abdominal pain, perineal complaints, breast complaints, or anything also concerned her. She was additionally instructed to have nothing in the vagina for at least 6 weeks time to include intercourse. She understood her instructions and agrees to follow up as noted above. Discharge medications included [id number] analgesic pain medications as well as vitamins. Maternal blood type is A- and rubella status is immune. The remains in the nursery for withdrawal scoring as the patient had a positive drug screen for cocaine. Procedures: #1. Epidural analgesia #2. Normal spontaneous vaginal delivery #3. Second- degree midline episiotomy and repair Patient Condition at Discharge: Stable Plan - Discharge Summary New Discharge Prescriptions: No Action DULoxetine HCL [Cymbalta] 90 mg PO DAILY Ciprofloxacin HCl [Cipro] 500 mg PO Q12H 10 Days #20 tab HYDROcodone/APAP 5-325MG [[place] 5-325] 1 each PO Q6HR PRN 3 Days #12 tab PRN Reason: Pain Ciprofloxacin HCl [Cipro] 500 mg PO Q12HR #14 tab ondansetron HCL [Zofran] 4 mg PO Q6H PRN PRN Reason: Nausea And Vomiting Omeprazole 20 mg PO DAILY diazePAM [Valium] 5 - 10 mg PO Q12H Phenazopyridine [Pyridium] 100 mg PO TID 3 Days #9 tab HYDROcodone/APAP 5-325MG [[place] 5-325] 1 tab PO Q6HR PRN 3 Days #12 tab PRN Reason: Severe Pain Ondansetron Odt [Zofran Odt] 4 mg PO Q8HR PRN #10 tab PRN Reason: Nausea Discharge Medication List DULoxetine HCL [Cymbalta] 90 mg PO DAILY 11/15/20 [History] Omeprazole 20 mg PO DAILY 11/15/20 [History] diazePAM [Valium] 5 - 10 mg PO Q12H 11/15/20 [History] ondansetron HCL [Zofran] 4 mg PO Q6H PRN 11/15/20 [History] Ciprofloxacin HCl [Cipro] 500 mg PO Q12H 10 Days #20 tab 11/18/20 [Rx] HYDROcodone/APAP 5-325MG [[place] 5-325] 1 each PO Q6HR PRN 3 Days #12 tab 11/18/20 [Rx] Phenazopyridine [Pyridium] 100 mg PO TID 3 Days #9 tab 11/18/20 [Rx] HYDROcodone/APAP 5-325MG [[place] 5-325] 1 tab PO Q6HR PRN 3 Days #12 tab 03/20/21 [Rx] Ciprofloxacin HCl [Cipro] 500 mg PO Q12HR #14 tab 04/18/22 [Rx] Ondansetron Odt [Zofran Odt] 4 mg PO Q8HR PRN #10 tab 04/18/22 [Rx] Follow up Appointment(s)/Referral(s): Rod Travis MD [STAFF PHYSICIAN] - 6 Weeks Discharge Disposition: HOME SELF-CARE
[2023-08-04 14:04] LABS: HIV 2 AB Non-Reactive (Non-Reactive); HIV AB P24 Non-Reactive (Non-Reactive); HIV P24 AG Non-Reactive (Non-Reactive)
[2023-08-05 14:53] LABS: C. trachomatis,PCR Negative (Negative)
[2023-08-05 15:30] LABS: N. gonorrhoeae,PCR Negative (Negative)
== END 2023-08-04 10:45 | disposition home or self-care (01) | DRG 807 ==
LOC: FBPOP 10:01 → 4FBP 10:13
PROVIDERS: ADMIT Obstetrics & Gynecology; ATTEND Obstetrics & Gynecology
PROC: 10E0XZZ Delivery of Products of Conception, External Approach (ICD-10-PCS; principal; 2023-08-02)
PROC: 4A0HXCZ Measurement of Products of Conception, Cardiac Rate, External Approach (ICD-10-PCS; 2023-08-02)
PROC: 0W8NXZZ Division of Female Perineum, External Approach (ICD-10-PCS; 2023-08-02)
DX: O42.92 Full-term premature rupture of membranes, unspecified as to length of time between rupture and onset of labor (principal); Z37.0 Single live birth; O76 Abnormality in fetal heart rate and rhythm complicating labor and delivery; F32.A Depression, unspecified; F41.0 Panic disorder [episodic paroxysmal anxiety]; O99.344 Other mental disorders complicating childbirth; Z3A.37 37 weeks gestation of pregnancy; Z79.899 Other long term (current) drug therapy; K21.9 Gastro-esophageal reflux disease without esophagitis; O99.62 Diseases of the digestive system complicating childbirth; Z88.8 Allergy status to other drugs, medicaments and biological substances; Z91.018 Allergy to other foods
CPT/HCPCS: 59025; 80306; 81001; 85025; 85461; 86762; 86780; 86850; 86900; 86901; 87340; 87390; 87491; 87591; 90471; 90472; 90686; 90715; 99213

== ENCOUNTER 2025-03-03 00:46 | Inpatient (IN) | payer BC, OTHER ==
[2025-03-03] MEDS: LACTATED RINGERS 1,000 ML IV SCH (00:46)
[2025-03-03] MEDS ORDERED: TRANEXAMIC 1,000 MG/100ML-NACL 1,000 MG in EMPTY BAG 1 BAG IV PRN (00:56)
[2025-03-03] MEDS ORDERED: CARBOPROST TROMETHAMINE 250 MCG/ML 1 ML AMP IM PRN (00:56)
[2025-03-03] MEDS ORDERED: METHYLERGONOVINE 0.2 MG/ML 1 ML AMP IM PRN (00:56)
[2025-03-03] MEDS ORDERED: TERBUTALINE 1 MG/ML VIAL SQ PRN (00:56)
[2025-03-03] MEDS: OXYTOCIN 10 UNIT/ML 1 ML VIAL IM PRN (00:58)
[2025-03-03 01:04] LABS: Basophils # (A) 0.03 10*3/uL (0.00-0.10); Basophils % (A) 0.2 %; Eosinophils # (A) 0.01 10*3/uL (0.04-0.35); Eosinophils % (A) 0.1 %; HCT 39.1 % (37.2-46.3); HGB 13.1 g/dL (12.0-15.0); Lymphocytes # (A) 2.33 10*3/uL (0.90-5.00); Lymphocytes % (A) 14.5 %; MCH 29.1 pg (27.0-32.0); MCHC 33.5 g/dL (32.0-37.0); MCV 86.9 fL (80.0-97.0); Monocytes # (A) 1.20 10*3/uL (0.20-1.00); Monocytes % (A) 7.4 %; Neutrophils # (A) 12.47 10*3/uL (1.80-7.70); Neutrophils % (A) 77.4 %; Platelet Count 330 10*3/uL (140-440); RBC 4.50 10*6/uL (4.10-5.20); RDW 14.8 % (11.5-14.5); WBC 16.11 10*3/uL (4.50-10.00)
[2025-03-03] MEDS: OXYTOCIN 30 UNITS/500 ML NS 30 UNIT in SALINE 1 500ML.BAG IV SCH (01:05)
[2025-03-03] MEDS: LIDOCAINE 0.5% (PF) 5 MG/ML (50 ML SDV) SQ PRN (01:06)
--- NOTE | 2025-03-03 02:01 | P.HPOB ---
History of Present Illness H&P Date: 03/03/25 Chief Complaint: Contractions, pressure Ms. Smith is a 35 year old at 33 weeks and 6 days with EDC of 04/15/2025 who presents to triage completely dilated with ruptured membranes. She states she had care at [facility] and denies any known complications this . She does admit to cocaine use during the . Obstetric history: 1 FTVD at 38 weeks followed by infant demise at 5 weeks old 2/2 sleeping in the bed with parents Past Medical history: Anxiety, Depression, Arthritis, Degenerative disc disease Medications: None Past Medical History Past Medical History: GERD/Reflux Additional Past Medical History / Comment(s): back pain, DJD History of Any Multi-Drug Resistant Organisms: None Reported Past Surgical History: No Surgical Hx Reported Additional Past Surgical History / Comment(s): wisdom teeth Past Anesthesia/Blood Transfusion Reactions: No Reported Reaction Additional Past Anesthesia/Blood Transfusion Reaction / Comment(s): mother has difficulty waking up. Past Psychological History: Anxiety, Depression, Panic Disorder Smoking Status: Never smoker Past Alcohol Use History: None Reported, Occasional Past Drug Use History: Marijuana Additional Drug Use History / Comment(s): occasional marijuana use - Past Family History Mother Family Medical History: Cancer Additional Family Medical History / Comment(s): hypoglycemia. of breast cancer 2018 Medications and Allergies Home Medications Medication Instructions Recorded Confirmed Type DULoxetine HCL [Cymbalta] 90 mg PO DAILY 11/15/20 11/15/20 History Omeprazole 20 mg PO DAILY 11/15/20 11/15/20 History diazePAM [Valium] 5 - 10 mg PO Q12H 11/15/20 11/15/20 History ondansetron HCL [Zofran] 4 mg PO Q6H PRN 11/15/20 11/15/20 History Ciprofloxacin HCl [Cipro] 500 mg PO Q12H 10 Days #20 tab 11/18/20 Rx HYDROcodone/APAP 5-325MG [[place] 1 each PO Q6HR PRN 3 Days #12 tab 11/18/20 Rx 5-325] Phenazopyridine [Pyridium] 100 mg PO TID 3 Days #9 tab 11/18/20 Rx HYDROcodone/APAP 5-325MG [[place] 1 tab PO Q6HR PRN 3 Days #12 tab 03/20/21 Rx 5-325] Ciprofloxacin HCl [Cipro] 500 mg PO Q12HR #14 tab 04/18/22 Rx Ondansetron Odt [Zofran Odt] 4 mg PO Q8HR PRN #10 tab 04/18/22 Rx Allergies Allergy/AdvReac Type Severity Reaction Status Date / Time mani Allergy Severe LIPS SWELL Verified 09/26/22 12:40 cefaclor [From Ceclor] Allergy Rash/Hives Verified 09/26/22 12:40 kiwi Allergy Swelling Verified 09/26/22 12:40 c-clor Allergy Unknown Uncoded 09/26/22 12:40 cats Allergy STUFFY Uncoded 09/26/22 12:40 NOSE, ITCHY WATERY EYES, ITCHY NOSE Exam Vital Signs Pulse Resp BP 03/03/25 01:22 85 20 113/59 03/03/25 01:07 90 18 107/63 Intake and Output 03/02/25 03/02/25 03/03/25 14:59 22:59 06:59 Other: Weight 83.915 kg Focused physical exam is performed. This is a healthy-appearing in no apparent distress. Breathing is non-labored. Abdomen is gravid and non-tender. Cervical exam is complete/100% effaced/+2 station. Extremities non-tender and non-edematous. heart tones are Category I and tocometer is graphing contractions every 2-4 minutes. Results Result Diagrams: 03/03/25 00:37 Abnormal Lab Results - Last 24 Hours (Table) 03/03/25 Range/Units 00:37 WBC 16.11 H (4.50-10.00) 10*3/uL Immature Gran # 0.07 H (0.00-0.04) 10*3/uL Neutrophils # 12.47 H (1.80-7.70) 10*3/uL Monocytes # 1.20 H (0.20-1.00) 10*3/uL Eosinophils # 0.01 L (0.04-0.35) 10*3/uL Assessment and Plan Assessment: 33 week at 33 weeks and 6 days completely dilated, in labor Plan: Admit, clear liquid diet, expectant management, anticipate vaginal delivery
[2025-03-03] MEDS ORDERED: BENZOCAINE/MENTHOL SPRAY 1 GM/SPRAY AEROSOL TOPICAL PRN (02:04)
[2025-03-03] MEDS ORDERED: diphenhydrAMINE 25 MG CAP PO PRN (02:04)
[2025-03-03] MEDS ORDERED: LANOLIN CREAM 1 GM TUBE TOPICAL PRN (02:04)
[2025-03-03] MEDS ORDERED: SIMETHICONE 80 MG CHEWABLE PO PRN (02:04)
[2025-03-03] MEDS ORDERED: HYDROCORTISONE 2.5% RECTAL CREAM 30 GM TUBE RECTAL PRN (02:04)
[2025-03-03] MEDS ORDERED: diphenhydrAMINE 50 MG/ML 1 ML VIAL IVP PRN ×2 (02:04)
--- NOTE | 2025-03-03 02:04 | P.PROBDLV ---
Vaginal Delivery Note - . Vaginal Delivery Note: DATE OF SERVICE: 03/03/2025 PROCEDURE: Normal Vaginal Delivery ATTENDING: Dr. Lara Bauer MD ESTIMATED BLOOD LOSS: 200 mL FINDINGS: VMI, Apgars 9/9. Weight 2755 grams. PROCEDURE: Ms. Smith is a 35 year old at 33 weeks and 6 days presenting to labor and delivery completely dilated. Contractions and pain began approximately one hour prior to arrival. For further details, please review the admitting H&P. The patient pushed effectively with category I FHTs. A viable male infant was delivered at 0052 over an intact perineum. The was placed on the maternal abdomen and bulb suctioned. The infant was noted to be spontaneously crying. Cord was clamped and cut. The was handed off to the pediatric team. Placenta was delivered whole with gentle cord traction at 0057. Oxytocin was started to facilitate uterine tone. Uterine fundus was found to be firm and below the umbilicus upon fundal massage. Thorough examination of the cervix, vagina, periurethral area, and perineum revealed a superficial right labial laceration. This area is infiltrated with lidocaine and repaired in the usual fashion. The patient is stable and allowed to begin the bonding process.
[2025-03-03] MEDS: IBUPROFEN 800 MG TAB PO SCH (02:13)
[2025-03-03] MEDS: ZOLPIDEM 5 MG TAB PO PRN (04:15)
[2025-03-03] MEDS: ACETAMINOPHEN TAB 500 MG TAB PO SCH (06:07)
[2025-03-03 06:37] LABS: Barbiturate Screen,Urine Not Detected (NotDetected); Benzodiazepines Screen,Urine Detected (NotDetected); Opiate Screen,Urine Not Detected (NotDetected); Oxycodone Screen, Urine Not Detected (NotDetected); Phencyclidine Screen,Urine Not Detected (NotDetected); Tricyclic Antidepressant,Urine Not Detected (NotDetected); Urn Cannabinoid Scrn Not Detected (NotDetected)
[2025-03-03] MEDS: SENNOSIDES-DOCUSATE SODIUM 1 EACH TAB PO SCH (08:34)
[2025-03-03 08:42] LABS: Hepatitis B Surface Antigen Nonreactive (Nonreactive)
[2025-03-03 09:56] LABS: HIV 2 AB Non-Reactive (Non-Reactive); HIV AB P24 Non-Reactive (Non-Reactive); HIV P24 AG Non-Reactive (Non-Reactive)
[2025-03-03] MEDS: Rhogam IMMUNE GLOBULIN 1,500 UNIT/1 ML IM ONE (20:11)
[2025-03-04 00:01] VITALS: RESP 18
[2025-03-04 07:16] LABS: Basophils # (A) 0.05 10*3/uL (0.00-0.10); Basophils % (A) 0.4 %; Eosinophils # (A) 0.15 10*3/uL (0.04-0.35); Eosinophils % (A) 1.2 %; HCT 33.2 % (37.2-46.3); HGB 10.8 g/dL (12.0-15.0); Lymphocytes # (A) 2.34 10*3/uL (0.90-5.00); Lymphocytes % (A) 18.1 %; MCH 28.7 pg (27.0-32.0); MCHC 32.5 g/dL (32.0-37.0); MCV 88.3 fL (80.0-97.0); Monocytes # (A) 1.15 10*3/uL (0.20-1.00); Monocytes % (A) 8.9 %; Neutrophils # (A) 9.15 10*3/uL (1.80-7.70); Neutrophils % (A) 70.9 %; Platelet Count 260 10*3/uL (140-440); RBC 3.76 10*6/uL (4.10-5.20); RDW 15.0 % (11.5-14.5); WBC 12.91 10*3/uL (4.50-10.00)
[2025-03-04 09:30] VITALS: BP 115/79; PULSE 67; TEMP 97.7
--- NOTE | 2025-03-04 09:44 | P.DS ---
Providers Date of admission: 03/03/25 00:53 Expected date of discharge: 03/04/25 Attending physician: Lara Bauer MD Primary care physician: Stated None Hospital Course: Ms. Smith is a 35 year old now PPD#1 s/p vaginal delivery at 33 weeks and 6 days gestation. The delivery was uncomplicated and the transitioned well but was still transferred to a facility with a NICU due to gestational age. The patient is doing well this morning and had no acute events overnight. She has no complaints this morning. She reports minimal lochia, passing flatus, voiding without difficulty, ambulating, and eating/drinking without nausea or vomiting. She denies chest pain, shortness of breathing, fevers, or chills overnight. She denies pain or swelling in the legs. restrictions are reviewed with the patient including pelvic rest for 6 weeks. The patient is encouraged to call the office if she experiences any heavy bleeding, foul-smelling discharge, breast complaints, or any if she has any other concerns. She will follow up in the office in 6 weeks for exam. All questions are answered. Patient Condition at Discharge: Good Plan - Discharge Summary New Discharge Prescriptions: New Docusate [Colace] 100 mg PO BID PRN #60 capsule PRN Reason: Constipation No Action Pnv 11/Iron Fum/Folic Acid/Om3 [[place] Dha Softgel] 1 each PO DAILY Omeprazole 20 mg PO DAILY Acetaminophen/Diphenhydramine [Tylenol PM 500-25mg] 1 tab PO HS Discharge Medication List Omeprazole 20 mg PO DAILY 11/15/20 [History] Acetaminophen/Diphenhydramine [Tylenol PM 500-25mg] 1 tab PO HS 03/03/25 [History] Pnv 11/Iron Fum/Folic Acid/Om3 [[place] Dha Softgel] 1 each PO DAILY 03/03/25 [History] Docusate [Colace] 100 mg PO BID PRN #60 capsule 03/04/25 [Rx] Follow up Appointment(s)/Referral(s): Lara Bauer MD [STAFF PHYSICIAN] - 04/14/25 1:30 am Activity/Diet/Wound Care/Special Instructions: Instructions 1. Do not begin any exercise program for 3 weeks. 2. Do not resume sexual relations for 6 weeks or longer if uncomfortable. 3. You may take tub baths or showers at any time. 4. You may use tampons if desired after 6 weeks. 5. Keep any areas repaired with stitches clean and dry. 6. If you are not nursing, wear a good fitting, supportive bra during the day and limit fluid intake for at least 1 week to prevent breast engorgement. 7. Call the office, , within the next week to make appointment for your 6 week checkup if it has not already been made. 8. Report any of the following occurrences to the doctor promptly: a. Heavy, excessive bleeding b. Chills, fever c. Burning or frequency of urination d. Pain or redness and breasts if nursing e. Increasing pain or swelling of vulva (stitches). In addition to the above instructions, the following additional should be followed: 1. No heavy lifting or straining (exercising) until after 6 week checkup. 2. Keep abdominal incision clean and dry: You may wear a dressing if more comfortable. 3. Make office appointment for 2 weeks after delivery date. Discharge Disposition: HOME SELF-CARE
[2025-03-04 11:04] LABS: C. trachomatis,PCR Negative (Negative); N. gonorrhoeae,PCR Negative (Negative)
== END 2025-03-04 10:10 | disposition home or self-care (01) | DRG 560 ==
LOC: FBPOP 00:46 → 4FBP 00:53
PROVIDERS: ADMIT Obstetrics & Gynecology; ATTEND Obstetrics & Gynecology
PROC: 10E0XZZ Delivery of Products of Conception, External Approach (ICD-10-PCS; principal; 2025-03-03)
PROC: 0HQ9XZZ Repair Perineum Skin, External Approach (ICD-10-PCS; 2025-03-03)
PROC: 3E033VJ Introduction of Other Hormone into Peripheral Vein, Percutaneous Approach (ICD-10-PCS; 2025-03-03)
PROC: 4A1HXCZ Monitoring of Products of Conception, Cardiac Rate, External Approach (ICD-10-PCS; 2025-03-03)
DX: O60.14X0 Preterm labor third trimester with preterm delivery third trimester, not applicable or unspecified (principal); O99.324 Drug use complicating childbirth; F14.90 Cocaine use, unspecified, uncomplicated; F32.A Depression, unspecified; F41.0 Panic disorder [episodic paroxysmal anxiety]; O70.0 First degree perineal laceration during delivery; O99.344 Other mental disorders complicating childbirth; Z37.0 Single live birth; Z3A.33 33 weeks gestation of pregnancy; Z79.899 Other long term (current) drug therapy
CPT/HCPCS: 80306; 82947; 85025; 85461; 86762; 86780; 86850; 86900; 86901; 87340; 87390; 87491; 87591; 88307